=== PATIENT | male | born 1980 | race Caucasian/White ===

== ENCOUNTER → 2016-11-05 | Outpatient (CLI) | payer OTHER ==
[~2016-11-05] MED LIST: ANBEEL TOP; BENZ1TA PO; GEOD20CA14 PO; MOBI15TA PO; NAPR500T PO; NEUR300C PO; NICO21PAT TD; TRAZO50TA PO; TYLE325T5 PO
--- NOTE | 2016-11-05 21:31 | REP ---
Clinical: Decreased size to the right testicle by physical examination. Technique: Real time gonsalez scale and color Doppler evaluation using curved array and linear high frequency transducers. Findings: The bilateral testicles demonstrate microlithiasis (right greater than left). Symmetric vascularity is appreciated to the bilateral testicles without evidence for torsion or acute infectious/inflammatory process. Right testicle measures 4.4 x 1.7 x 2.8 cm with a heterogeneous 6 mm hypoechoic area along the superior lateral margin concerning for small mass. Incidental note is made of a 4.3 mm right epididymal head cyst. No significant right varicocele or hydrocele. Left testicle measures 5.2 x 3.0 x 3.8 cm without evidence for mass lesion. Incidental note is made of a 4.3 mm epididymal head cyst. No significant left varicocele or hydrocele. Impression: Bilateral microlithiasis with mildly decreased size to the right testicle demonstrating 6 mm heterogeneous hypoechoic area concerning for small mass. Signed by Maldonado Gandhi MD 11/05/2016 09:23 P
== END ==
LOC: M RAD 15:15
PROVIDERS: ATTEND Nurse Practitioner Family
DX: N50.9 Disorder of male genital organs, unspecified (principal)

== ENCOUNTER → 2016-11-23 | Outpatient (CLI) | payer OTHER ==
[2016-11-23 13:19] LABS: MEAN CORPUSCULAR HEMOGLOBIN 27.8 pg (27.0-33.0); MEAN CORPUSCULAR HGB CONC 31.7 g/dl (32.0-36.5); RED CELL DISTRIBUTION WIDTH 13.1 % (11.5-14.5); WHITE BLOOD COUNT 10.2 K/mm3 (4.0-10.0)
[2016-11-23 13:23] LABS: ANION GAP 7 MEQ/L (8-16); BLOOD UREA NITROGEN 12 MG/DL (7-18); CALCIUM LEVEL 9.7 MG/DL (8.5-10.1); CARBON DIOXIDE LEVEL 31 MEQ/L (21-32); CHLORIDE LEVEL 104 MEQ/L (98-107); CREATININE FOR GFR 0.89 MG/DL (0.70-1.30); GLOMERULAR FILTRATION RATE > 60.0 (>60); GLUCOSE, FASTING 60 MG/DL (70-105); POTASSIUM SERUM 4.9 MEQ/L (3.5-5.1); SODIUM LEVEL 142 MEQ/L (136-145)
== END ==
LOC: M SMT 08:59
PROVIDERS: ATTEND Nurse Practitioner Women's Health
DX: N50.9 Disorder of male genital organs, unspecified (principal)

== ENCOUNTER → 2016-12-03 | Outpatient (CLI) | payer OTHER ==
[~2016-12-03] MED LIST changes: +GASTROGRAFIN SOLUTION 30ML (Q9963) As Ordered ONE; +ISOVUE-370 76% 100ML VIAL (Q9967) As Ordered ONE
--- NOTE | 2016-12-03 18:22 | REP ---
Clinical: Testicular mass. Technique: Axial contrast enhanced images from the thoracic inlet to the upper abdomen using 100 ml Isovue 370 intravenous contrast material with coronal and sagittal re-formations. Findings: Bilateral lung weldon are well-aerated, symmetric, and clear without consolidation, nodule or mass lesion. Minimal right basilar scarring. No pleural effusion/reaction or pneumothorax. Tracheobronchial tree is patent. No axillary, hilar, or mediastinal adenopathy. Heart/pericardium and thoracic aorta are normal. Impression: No acute mediastinal or pleuroparenchymal process. Signed by Maldonado Gandhi MD 12/03/2016 06:13 P
--- NOTE | 2016-12-03 18:31 | REP ---
Clinical: Testicular mass. Technique: Axial contrast enhanced images from the lung bases to the pubic symphysis using oral and 100 ml Isovue 370 intravenous contrast material with coronal and sagittal re-formations. Findings: Lung bases demonstrate minimal right basilar scarring. Liver, spleen, pancreas, gallbladder, bilateral adrenal glands and kidneys are normal. The enteric system is without obstruction or acute inflammatory process. Sigmoid diverticula suggested without acute diverticulitis. Normal terminal ileum and appendix identified in the right lower quadrant. Pelvis demonstrates normal bladder and age appropriate prostate/seminal vesicles. No pelvic fluid or ascites. No free air. No intraperitoneal or retroperitoneal adenopathy. Vasculature appears normal. Surrounding musculoskeletal structures are intact. Sclerotic focus in the left femoral metaphysis likely represent a bone island. Impression: No acute intra-abdominal or pelvic pathology appreciated. Signed by Maldonado Gandhi MD 12/03/2016 06:22 P
== END ==
LOC: M RAD 15:57
PROVIDERS: ATTEND Nurse Practitioner Women's Health
DX: N50.9 Disorder of male genital organs, unspecified (principal)

== ENCOUNTER 2017-01-01 18:44 | Emergency (ER) | payer OTHER ==
[~2017-01-01] VITALS: Ht 170.2 cm; Wt 60.8 kg
[~2017-01-01 18:44] MED LIST changes: -GASTROGRAFIN SOLUTION 30ML (Q9963) As Ordered ONE; -ISOVUE-370 76% 100ML VIAL (Q9967) As Ordered ONE
[2017-01-01] MEDS ORDERED: KETOROLAC 30 MG/ML VIAL (J1885) IM ONE (19:45)
[2017-01-01 20:16] VITALS: BP 129/71
--- NOTE | 2017-01-02 00:24 | REP ---
Clinical: Pain and instability. Technique: AP, lateral, coned-down views. Findings: Three views of the lumbosacral spine demonstrate satisfactory alignment and lordosis without acute fracture / compression injury or subluxation. Minimal age-related changes are appreciated including anterior spurring most notably at the superior endplate of L4. Impression: Mild age-related changes . No acute fracture / compression injury or subluxation. Signed by Maldonado Gandhi MD 01/02/2017 12:16 A
== END 2017-01-01 20:40 | disposition home or self-care (01) ==
LOC: EDBD 18:44 → M ED 19:45
DX: M54.5 Low back pain (principal); V43.52XA Car driver injured in collision with other type car in traffic accident, initial encounter; Y92.410 Unspecified street and highway as the place of occurrence of the external cause; Y93.9 Activity, unspecified; Y99.9 Unspecified external cause status; G89.29 Other chronic pain; F32.9 Major depressive disorder, single episode, unspecified; G43.909 Migraine, unspecified, not intractable, without status migrainosus; Z79.899 Other long term (current) drug therapy
CPT/HCPCS: 72100; 96372; 99282; J1885

== ENCOUNTER → 2017-06-21 | Outpatient (CLI) | payer OTHER ==
[~2017-06-21] MED LIST changes: +BACT800T5 PO; +BENZ-52 PO; -BENZ1TA PO; +TYLE650T35 PO
--- NOTE | 2017-06-25 10:02 | REP ---
Clinical: Follow up scrotal mass. Technique: Real time gonsalez scale and color Doppler evaluation using linear high frequency transducer. Comparison: 11/05/2016. Findings: In comparison with prior examination, the right testicle now demonstrates multiple hypodense lesions measuring up to 13 x 8 x 13 mm and 12 x 5 x 9 mm along with diffuse microlithiasis. Incidental right epididymal head cyst measures 4.6 mm. The left testicle appears relatively normal and without mass lesion and only few scattered calcifications. Small bilateral hydroceles noted. Incidental left epididymal head cysts measure up to 2 mm. Vascularity to the bilateral testicles is appreciated without evidence for torsion. Right testicle measures 3.4 x 2.1 x 3.2 cm. Left testicle measures 4.8 x 2.3 x 3.3 cm. Impression: 1. While the prior examination demonstrated a single 6 mm hypoechoic lesion, current examination now demonstrates multiple heterogeneous hypoechoic lesions in the right testicle measuring up to 13 x 8 x 13 mm along with diffuse microlithiasis. 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 2. Further less significant findings as described above. Signed by Maldonado Gandhi MD 06/25/2017 10:00 A
== END ==
LOC: M RAD 17:52
PROVIDERS: ATTEND Urology
DX: N50.9 Disorder of male genital organs, unspecified (principal)

== ENCOUNTER → 2017-06-26 | Outpatient (CLI) | payer OTHER ==
--- NOTE | 2017-06-26 11:35 | REP ---
Clinical: Preoperative assessment. Testicular cancer . Comparison: 10/11/2015 . Technique: PA and lateral. Findings: The mediastinum and cardiac silhouette are normal. Airway is patent and midline. The lung wedlon are clear and without acute consolidation, effusion, or pneumothorax. The skeletal structures are intact and normal. Impression: 1. No acute cardiopulmonary process. Signed by Maldonado Gandhi MD 06/26/2017 11:26 A
[2017-06-26 13:35] LABS: ANION GAP 10 MEQ/L (8-16); BLOOD UREA NITROGEN 8 MG/DL (7-18); CALCIUM LEVEL 9.4 MG/DL (8.5-10.1); CARBON DIOXIDE LEVEL 30 MEQ/L (21-32); CHLORIDE LEVEL 103 MEQ/L (98-107); CREATININE FOR GFR 0.88 MG/DL (0.70-1.30); GLOMERULAR FILTRATION RATE > 60.0 (>60); GLUCOSE, FASTING 99 MG/DL (70-105); POTASSIUM SERUM 4.7 MEQ/L (3.5-5.1); SODIUM LEVEL 143 MEQ/L (136-145)
[2017-06-26 13:45] LABS: INR 0.96; MEAN CORPUSCULAR HEMOGLOBIN 29.6 pg (27.0-33.0); MEAN CORPUSCULAR VOLUME 86.8 fl (80.0-96.0); RED CELL DISTRIBUTION WIDTH 13.1 % (11.5-14.5); WHITE BLOOD COUNT 10.9 K/mm3 (4.0-10.0)
== END ==
LOC: M SMT 10:51
PROVIDERS: ATTEND Urology
DX: N50.9 Disorder of male genital organs, unspecified (principal); C62.11 Malignant neoplasm of descended right testis

== ENCOUNTER 2017-07-10 07:04 | Day surgery (SDC) | payer OTHER ==
[~2017-07-10] VITALS: Ht 170.2 cm; Wt 63.0 kg
[~2017-07-10 07:04] MED LIST changes: -BACT800T5 PO; +LIDOCAINE 2% INJ 100 MG/5 ML SDV (FOR ANES.) As Ordered ONE; +MIDAZOLAM INJ 2 MG/2 ML VIAL (J2250) As Ordered ONE; +ONDANSETRON 4MG/2ML VIAL (J2405) As Ordered ONE; +PROPOFOL 200 MG/20 ML VIAL As Ordered ONE; -TYLE650T35 PO; +fentaNYL 100 MCG/2 ML INJECTION (J3010) As Ordered ONE
[2017-07-10] MEDS ORDERED: LR 1,000 ML IV ONE (07:15)
[2017-07-10] MEDS ORDERED: ALBUTEROL SULFATE 2.5 MG/0.5 ML INH NEB SOLN As Ordered ONE (08:08)
[2017-07-10] MEDS ORDERED: ALBUTEROL SULFATE 2.5 MG/0.5 ML INH NEB SOLN INH ONE (08:15)
[2017-07-10] MEDS ORDERED: BUPIVACAINE HCL 0.25% 30 ML VIAL As Ordered ONE (08:15)
[2017-07-10] MEDS ORDERED: LIDOCAINE 2% MDV 20 ML VIAL As Ordered ONE (08:15)
[2017-07-10] MEDS ORDERED: BACTRIM 160MG/800MG DS TAB PO SCH (09:00)
[2017-07-10] MEDS ORDERED: KETOROLAC 60 MG/2 ML VIAL (J1885) As Ordered ONE (09:23)
[2017-07-10] MEDS ORDERED: NEOSTIGMINE 1MG/ML 5 ML SYRINGE (J2710) As Ordered ONE (09:25)
[2017-07-10] MEDS ORDERED: GLYCOPYRROLATE INJ 0.2 MG/ML 2 ML VIAL As Ordered ONE (09:25)
[2017-07-10] MEDS ORDERED: dexameTHASONE 4 MG/ML 1ML VIAL (J1100) As Ordered ONE (09:35)
[2017-07-10] MEDS ORDERED: TYLE650T35 PO (09:55)
[2017-07-10] MEDS ORDERED: BACT800T5 PO (09:55)
[2017-07-10] MEDS ORDERED: LR 1,000 ML IV SCH (10:00)
[2017-07-10] MEDS ORDERED: PERCOCET 5MG/325MG TAB PO PRN (10:00)
[2017-07-10] MEDS ORDERED: ONDANSETRON 4MG/2ML VIAL (J2405) IV PRN (10:00)
[2017-07-10] MEDS ORDERED: fentaNYL 100 MCG/2 ML INJECTION (J3010) As Ordered ONE (10:04)
[2017-07-10] MEDS: fentaNYL 100 MCG/2 ML INJECTION (J3010) IV PRN ×4 (10:07→10:22)
[2017-07-10 11:50] VITALS: BP 126/72
[2017-07-10] MEDS ORDERED: ACETAMINOPHEN 650MG ER TAB (TYLENOL ARTHRITIS) PO SCH (14:00)
--- NOTE | 2017-07-11 07:29 | RO ---
DATE OF PROCEDURE: 07/10/2017 PREOPERATIVE DIAGNOSIS: Right testicular neoplasia. POSTOPERATIVE DIAGNOSIS: Right testicular neoplasia. SURGERY PERFORMED: Right radical orchiectomy. FINDINGS: Right testicular neoplasia. SURGEON: Vahid Monaco MD GRINDER SET UP OPERATOR CENTERLESS: ANESTHESIA: General. COMPLICATIONS: None. ESTIMATED BLOOD LOSS: N/A. HISTORY OF PRESENT ILLNESS: 36-year-old male patient with a solid rock lump in the right testicle confirmed by ultrasound. For this reason he has consented for a right radical orchiectomy. PROCEDURE DESCRIPTION: With the patient in supine position, under general anesthesia, after prepping and draping the area of concern, which included the entire genitalia and abdomen, we started by doing an incision, a transverse incision, for about 5 cm in length in the right inguinal area. We then proceeded to open the fascia of Jony and Camper's fascia with electro Bovie cautery and open the external oblique fascia and the external inguinal ring for about 4 cm in length. We then identified the spermatic cord, dissected the spermatic cord, and put pressure on the testicle to actively extricate the testicle through the incision. With electro Bovie cautery we secured the resected the resected gubernaculum testis attached to the scrotum and secured hemostasis. We then proceeded to actively place three clamps at the base of the spermatic cord and cut in between the first and second clamp. We then proceeded to ligate the spermatic cord with #[address]-1 needle with #[address]-1 needle times two and then a #0 silk tie. We secured hemostasis. There was no bleeding from the spermatic cord. We took the hemostats out and closed the external oblique fascia in a running fashion with #3-0 Vicryl. I then proceeded to close the Jony's and Lopez's fascia with #3-0 chromic in separate stitches. We closed the skin with #4-0 Monocryl subcuticular stitches. We then applied local anesthesia to the wound with Marcaine 0.25% and lidocaine 1%, a total of 10 mL. We then proceeded to actively place Mastisol, Steri-Strips, Telfa and Tegaderm on top of the wound. There were no complications. The patient will go home today. No heavy weight lifting above 20 pounds for one month. No driving under narcotics. He will have pain medication and antibiotics.
== END 2017-07-10 12:15 | disposition home or self-care (01) ==
LOC: M SDC 07:04
PROVIDERS: ATTEND Urology
DX: C62.11 Malignant neoplasm of descended right testis (principal); F32.9 Major depressive disorder, single episode, unspecified; K21.9 Gastro-esophageal reflux disease without esophagitis; F17.210 Nicotine dependence, cigarettes, uncomplicated; Z79.899 Other long term (current) drug therapy

== ENCOUNTER → 2017-10-16 | Outpatient (CLI) | payer OTHER ==
[~2017-10-16] MED LIST changes: -ANBEEL TOP; -BENZ-52 PO; -GEOD20CA14 PO; +ISOVUE-370 76% 100ML VIAL (Q9967) As Ordered; -LIDOCAINE 2% INJ 100 MG/5 ML SDV (FOR ANES.) As Ordered ONE; -MIDAZOLAM INJ 2 MG/2 ML VIAL (J2250) As Ordered ONE; -MOBI15TA PO; -NAPR500T PO; -NEUR300C PO; -NICO21PAT TD; -ONDANSETRON 4MG/2ML VIAL (J2405) As Ordered ONE; -PROPOFOL 200 MG/20 ML VIAL As Ordered ONE; -TRAZO50TA PO; -TYLE325T5 PO; -fentaNYL 100 MCG/2 ML INJECTION (J3010) As Ordered ONE
== END ==
LOC: M RAD 16:59
DX: C62.90 Malignant neoplasm of unspecified testis, unspecified whether descended or undescended (principal)
CPT/HCPCS: Q9967

== ENCOUNTER → 2017-10-24 | Outpatient (CLI) | payer OTHER ==
[2017-10-24 12:13] LABS: HEMATOCRIT 45.5 % (42.0-52.0); HEMOGLOBIN 14.8 g/dl (14.0-18.0); MEAN CORPUSCULAR HEMOGLOBIN 27.8 pg (27.0-33.0); MEAN CORPUSCULAR HGB CONC 32.5 g/dl (32.0-36.5); MEAN CORPUSCULAR VOLUME 85.5 fl (80.0-96.0); PLATELET COUNT, AUTOMATED 409 10^3/uL (150-450); RED BLOOD COUNT 5.32 10^6/uL (4.30-6.10); RED CELL DISTRIBUTION WIDTH 13.1 % (11.5-14.5); WHITE BLOOD COUNT 11.7 10^3/uL (4.0-10.0)
[2017-10-24 12:41] LABS: ANION GAP 6 MEQ/L (8-16); BLOOD UREA NITROGEN 9 MG/DL (7-18); CALCIUM LEVEL 9.8 MG/DL (8.5-10.1); CARBON DIOXIDE LEVEL 31 MEQ/L (21-32); CHLORIDE LEVEL 102 MEQ/L (98-107); CREATININE FOR GFR 1.03 MG/DL (0.70-1.30); GLOMERULAR FILTRATION RATE > 60.0 (>60); GLUCOSE, FASTING 106 MG/DL (70-105); LDH LACTATE DEHYDROGENASE 178 U/L (87-241); POTASSIUM SERUM 4.9 MEQ/L (3.5-5.1); SODIUM LEVEL 139 MEQ/L (136-145)
[2017-10-25 08:06] LABS: HCG SERUM TUMOR MARKER QUANT < 1 mIU/mL (0-3)
[2017-10-25 09:19] LABS: ALPHA FETOPROTEIN TUMOR QUANT 1.7 NG/ML (<8.1)
== END ==
LOC: M SMT 08:58
DX: C62.90 Malignant neoplasm of unspecified testis, unspecified whether descended or undescended (principal)
CPT/HCPCS: 83615

== ENCOUNTER → 2018-03-13 | Outpatient (CLI) | payer OTHER ==
[2018-03-13 13:56] LABS: ANION GAP 8 MEQ/L (8-16); BLOOD UREA NITROGEN 7 MG/DL (7-18); CALCIUM LEVEL 9.3 MG/DL (8.5-10.1); CARBON DIOXIDE LEVEL 28 MEQ/L (21-32); CHLORIDE LEVEL 106 MEQ/L (98-107); CREATININE FOR GFR 0.91 MG/DL (0.70-1.30); GLOMERULAR FILTRATION RATE > 60.0 (>60); GLUCOSE, FASTING 81 MG/DL (70-100); LDH LACTATE DEHYDROGENASE 165 U/L (87-241); POTASSIUM SERUM 4.1 MEQ/L (3.5-5.1); SODIUM LEVEL 142 MEQ/L (136-145)
[2018-03-13 13:59] LABS: LDH LACTATE DEHYDROGENASE 174 U/L (87-241)
[2018-03-14 08:06] LABS: HCG SERUM TUMOR MARKER QUANT < 1 mIU/mL (0-3)
[2018-03-14 10:10] LABS: ALPHA FETOPROTEIN TUMOR QUANT < 1.3 NG/ML (<8.1)
== END ==
LOC: M SMT 10:14
DX: C62.90 Malignant neoplasm of unspecified testis, unspecified whether descended or undescended (principal)
CPT/HCPCS: 83615

== ENCOUNTER → 2018-05-27 | Outpatient (CLI) | payer OTHER ==
[2018-05-27 15:36] LABS: HEMATOCRIT 45.7 % (42.0-52.0); HEMOGLOBIN 15.3 g/dl (13.5-17.5); MEAN CORPUSCULAR HEMOGLOBIN 28.8 pg (27.0-33.0); MEAN CORPUSCULAR HGB CONC 33.5 g/dl (32.0-36.5); MEAN CORPUSCULAR VOLUME 85.9 fl (80.0-96.0); PLATELET COUNT, AUTOMATED 323 10^3/uL (150-450); RED BLOOD COUNT 5.32 10^6/uL (4.30-6.10); RED CELL DISTRIBUTION WIDTH 13.7 % (11.5-14.5); WHITE BLOOD COUNT 12.1 10^3/uL (4.0-10.0)
[2018-05-27 15:52] LABS: ANION GAP 5 MEQ/L (8-16); BLOOD UREA NITROGEN 10 MG/DL (7-18); CALCIUM LEVEL 9.3 MG/DL (8.5-10.1); CARBON DIOXIDE LEVEL 30 MEQ/L (21-32); CHLORIDE LEVEL 106 MEQ/L (98-107); CREATININE FOR GFR 1.01 MG/DL (0.70-1.30); GLOMERULAR FILTRATION RATE > 60.0 (>60); GLUCOSE, FASTING 91 MG/DL (70-100); LDH LACTATE DEHYDROGENASE 183 U/L (87-241); POTASSIUM SERUM 4.8 MEQ/L (3.5-5.1); SODIUM LEVEL 141 MEQ/L (136-145)
[2018-05-27 16:13] LABS: ALPHA FETOPROTEIN TUMOR QUANT < 1.3 NG/ML (<8.1)
[2018-05-29 08:06] LABS: HCG SERUM TUMOR MARKER QUANT < 1 mIU/mL (0-3)
== END ==
LOC: M LAB 15:22
DX: C62.90 Malignant neoplasm of unspecified testis, unspecified whether descended or undescended (principal); K76.89 Other specified diseases of liver; N28.1 Cyst of kidney, acquired; Z90.79 Acquired absence of other genital organ(s)
CPT/HCPCS: Q9967

== ENCOUNTER 2018-09-18 10:37 | Outpatient (RCR) | payer OTHER | END 2018-09-19 | LOC: M PT 10:37 | DX: M51.36 Other intervertebral disc degeneration, lumbar region (principal) ==

== ENCOUNTER → 2018-12-08 | Outpatient (CLI) | payer OTHER ==
[~2018-12-08] MED LIST changes: +ANBEEL TOP; +BACT800T5 PO; +BENZ-52 PO; +GEOD20CA14 PO; -ISOVUE-370 76% 100ML VIAL (Q9967) As Ordered; +MOBI15TA PO; +NAPR-50 PO; +NEUR300C PO; +NICO21PAT TD; +TRAZO50TA PO; +TYLE325T5 PO; +TYLE650T35 PO
[2018-12-08 17:42] LABS: HEMATOCRIT 48.6 % (42.0-52.0); HEMOGLOBIN 16.1 g/dl (13.5-17.5); MEAN CORPUSCULAR HEMOGLOBIN 28.3 pg (27.0-33.0); MEAN CORPUSCULAR HGB CONC 33.1 g/dl (32.0-36.5); MEAN CORPUSCULAR VOLUME 85.4 fl (80.0-96.0); PLATELET COUNT, AUTOMATED 353 10^3/uL (150-450); RED BLOOD COUNT 5.69 10^6/uL (4.30-6.10); WHITE BLOOD COUNT 10.6 10^3/uL (4.0-10.0)
[2018-12-08 18:04] LABS: BLOOD UREA NITROGEN 13 MG/DL (7-18); CALCIUM LEVEL 9.6 MG/DL (8.5-10.1); CARBON DIOXIDE LEVEL 31 MEQ/L (21-32); CHLORIDE LEVEL 102 MEQ/L (98-107); CREATININE FOR GFR 1.02 MG/DL (0.70-1.30); GLOMERULAR FILTRATION RATE > 60.0 (>60); GLUCOSE, FASTING 79 MG/DL (70-100); LDH LACTATE DEHYDROGENASE 208 U/L (87-241); SODIUM LEVEL 139 MEQ/L (136-145)
== END ==
LOC: M SMT 15:05
PROVIDERS: ATTEND Nurse Practitioner Women's Health
DX: Z85.47 Personal history of malignant neoplasm of testis (principal)

== ENCOUNTER → 2018-12-09 | Outpatient (CLI) | payer OTHER ==
[~2018-12-09] MED LIST changes: +GASTROGRAFIN SOLUTION 30ML (Q9963) As Ordered ONE; +ISOVUE-370 76% 100ML VIAL (Q9967) As Ordered ONE
--- NOTE | 2018-12-10 04:55 | REP ---
Clinical: History of testicular cancer. Technique: Axial contrast enhanced images from the lung bases to the pubic symphysis using oral (per protocol) and 100 ml Isovue 370 intravenous contrast material with precontrast and delayed images of the abdomen as well as coronal and sagittal re-formations. Automated dose reduction techniques and adjustment according to patient's size utilized during acquisition. Comparison: 05/27/2018, 10/16/2017, 12/03/2016. Findings: Lung bases are clear. Visualized heart and pericardium normal. Liver demonstrates mild fatty infiltration with few scattered stable subcentimeter hypodensities consistent with cysts. Spleen, pancreas, gallbladder, bilateral adrenal glands and kidneys are normal. The enteric system including stomach, small, and large bowel is without obstruction or acute inflammatory process. Normal terminal ileum and appendix identified in the right lower quadrant. Scattered sigmoid diverticula noted without acute diverticulitis. Pelvis demonstrates normal bladder and age appropriate prostate/seminal vesicles. No pelvic fluid or ascites. No intraperitoneal or retroperitoneal adenopathy. Abdominal aorta and vasculature appear normal. Musculoskeletal structures are intact and without focal osseous abnormality. Impression: No acute abdominopelvic pathology appreciated. Specifically, no evidence for metastatic disease. Electronically Signed by Maldonado Gandhi MD 12/10/2018 04:47 A
== END ==
LOC: M RAD 14:28
PROVIDERS: ATTEND Nurse Practitioner Family
DX: Z85.47 Personal history of malignant neoplasm of testis (principal); K76.0 Fatty (change of) liver, not elsewhere classified; K57.30 Diverticulosis of large intestine without perforation or abscess without bleeding
CPT/HCPCS: 74178; Q9963; Q9967

== ENCOUNTER → 2018-12-18 | Outpatient (CLI) | payer OTHER ==
[~2018-12-18] MED LIST changes: -GASTROGRAFIN SOLUTION 30ML (Q9963) As Ordered ONE; -ISOVUE-370 76% 100ML VIAL (Q9967) As Ordered ONE
--- NOTE | 2018-12-18 10:11 | REP ---
Clinical: History of testicular cancer . Comparison: 05/27/2018 . Technique: PA and lateral. Findings: The mediastinum and cardiac silhouette are normal. The lung weldon are clear and without acute consolidation, effusion, or pneumothorax. The skeletal structures are intact and normal. Impression: 1. No acute cardiopulmonary process. Electronically Signed by Maldonado Gandhi MD 12/18/2018 10:02 A
== END ==
LOC: M SMT 09:51
PROVIDERS: ATTEND Nurse Practitioner Women's Health
DX: Z85.47 Personal history of malignant neoplasm of testis (principal)

== ENCOUNTER → 2018-12-25 | Outpatient (REF) | payer OTHER ==
[2018-12-25 20:19] LABS: INFLUENZA A AMPLIFICATION NEGATIVE (NEGATIVE); INFLUENZA B AMPLIFICATION NEGATIVE (NEGATIVE)
== END ==
LOC: M LAB REF 19:16
PROVIDERS: ATTEND Physician Assistant
DX: J11.1 Influenza due to unidentified influenza virus with other respiratory manifestations (principal)

== ENCOUNTER → 2019-06-16 | Outpatient (CLI) | payer OTHER ==
[~2019-06-16] MED LIST changes: -NAPR-50 PO; +NAPR-837 PO; +TRAZ1TAB10 PO; -TRAZO50TA PO
[2019-06-16 14:40] LABS: HEMATOCRIT 46.4 % (42.0-52.0); MEAN CORPUSCULAR HEMOGLOBIN 27.7 pg (27.0-33.0); MEAN CORPUSCULAR HGB CONC 32.3 g/dl (32.0-36.5); MEAN CORPUSCULAR VOLUME 85.6 fl (80.0-96.0); PLATELET COUNT, AUTOMATED 310 10^3/uL (150-450); RED BLOOD COUNT 5.42 10^6/uL (4.30-6.10); WHITE BLOOD COUNT 11.3 10^3/uL (4.0-10.0)
[2019-06-16 15:09] LABS: BLOOD UREA NITROGEN 9 MG/DL (7-18); CALCIUM LEVEL 9.2 MG/DL (8.5-10.1); CARBON DIOXIDE LEVEL 30 MEQ/L (21-32); CHLORIDE LEVEL 104 MEQ/L (98-107); CREATININE FOR GFR 1.03 MG/DL (0.70-1.30); GLOMERULAR FILTRATION RATE > 60.0 (>60); GLUCOSE, FASTING 100 MG/DL (70-100); LDH LACTATE DEHYDROGENASE 166 U/L (87-241); POTASSIUM SERUM 4.1 MEQ/L (3.5-5.1); SODIUM LEVEL 139 MEQ/L (136-145)
--- NOTE | 2019-06-17 11:56 | REP ---
Clinical: Testicular cancer . Comparison: 12/18/2018 . Technique: PA and lateral. Findings: The mediastinum and cardiac silhouette are normal. The lung weldon are clear and without acute consolidation, effusion, or pneumothorax. The skeletal structures are intact and normal. Impression: 1. No acute cardiopulmonary process. Electronically Signed by Maldonado Gandhi MD 06/17/2019 02:15 A
== END ==
LOC: M LAB 13:34
PROVIDERS: ATTEND Nurse Practitioner Women's Health
DX: Z85.47 Personal history of malignant neoplasm of testis (principal)

== ENCOUNTER → 2019-12-09 | Outpatient (CLI) | payer OTHER ==
[2019-12-09 18:54] LABS: LDH LACTATE DEHYDROGENASE 145 U/L (87-241)
== END ==
LOC: M PLALAB 13:25
PROVIDERS: ATTEND Urology
DX: C62.90 Malignant neoplasm of unspecified testis, unspecified whether descended or undescended (principal)

== ENCOUNTER → 2019-12-10 | Outpatient (CLI) | payer OTHER ==
[~2019-12-10] MED LIST changes: +ISOVUE-370 76% 100ML VIAL (Q9967) As Ordered ONE
--- NOTE | 2019-12-10 09:26 | REP ---
CT ABDOMEN PELVIS WITH IV BUT WITHOUT ORAL CONTRAST: HISTORY: Testicular cancer. COMPARISON STUDY: December 09, 2018. CT CONTRAST DOSE: 100 mL of intravenous Isovue [address] FINDINGS: Preliminary digital agricultural aircraft pilot radiograph is unremarkable. The lung bases are clear. There is no evidence of pleural effusion or abdominal ascites. The liver and the spleen are normal in size homogeneous in texture. No focal liver lesion is seen. No adrenal lesion is observed. Kidneys enhance symmetrically. There are one or two tiny cortical cysts in each kidney. No pancreatic abnormality is seen. No abnormality is noted the gallbladder. There is no evidence of retroperitoneal mass or adenopathy. Normal appendix is seen. Small and large intestinal bowel loops are unremarkable. No pelvic adenopathy is seen. Seminal vesicles and prostate are unremarkable. Urinary bladder appears intact. No bony destructive lesion. There is a benign stable bone island in the intertrochanteric femur on the left unchanged. IMPRESSION: No acute disease. Electronically Signed by Adiel Roldan MD 12/10/2019 10:29 A
== END ==
LOC: M RAD 07:58
PROVIDERS: ATTEND Urology
DX: C62.90 Malignant neoplasm of unspecified testis, unspecified whether descended or undescended (principal)
CPT/HCPCS: 74177; Q9967

== ENCOUNTER → 2019-12-30 | Outpatient (REF) | payer OTHER ==
[~2019-12-30] MED LIST changes: -ISOVUE-370 76% 100ML VIAL (Q9967) As Ordered ONE
[2019-12-30 12:02] LABS: INFLUENZA A AMPLIFICATION NEGATIVE (NEGATIVE); INFLUENZA B AMPLIFICATION NEGATIVE (NEGATIVE)
== END ==
LOC: M LAB REF 11:03
PROVIDERS: ATTEND Physician Assistant
DX: J11.1 Influenza due to unidentified influenza virus with other respiratory manifestations (principal)

== ENCOUNTER 2020-11-30 22:00 | Emergency (ER) | payer OTHER ==
[~2020-11-30] VITALS: Ht 167.6 cm; Wt 62.3 kg
[~2020-11-30 22:00] MED LIST changes: +ACET650T61 PO; -TYLE650T35 PO
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
[2020-11-30] MEDS ORDERED: GI COCKTAIL 50ML BTL(HYOSCYAMINE/MAALOX/LIDOCAINE VISCOUS)(1:3:1) PO ONE (22:45)
[2020-11-30 22:48] LABS: BASO # 0.1 10^3/uL (0.0-0.2); BASO % 0.8 % (0.0-1.0); EOS # 0.3 10^3/uL (0.0-0.5); EOS % 2.7 % (0.0-3.0); HEMATOCRIT 45.2 % (42.0-52.0); HEMOGLOBIN 14.4 g/dl (13.5-17.5); LYMPH # 2.6 10^3/uL (1.5-5.0); LYMPH % 26.8 % (24.0-44.0); MEAN CORPUSCULAR HEMOGLOBIN 27.3 pg (27.0-33.0); MEAN CORPUSCULAR HGB CONC 31.9 g/dl (32.0-36.5); MEAN CORPUSCULAR VOLUME 85.8 fl (80.0-96.0); MONO # 0.8 10^3/uL (0.0-0.8); MONO % 8.2 % (0.0-5.0); NEUTROPHILS % 61.1 % (36.0-66.0); PLATELET COUNT, AUTOMATED 303 10^3/uL (150-450); RED BLOOD COUNT 5.27 10^6/uL (4.30-6.10); WHITE BLOOD COUNT 9.8 10^3/uL (4.0-10.0)
[2020-11-30 23:22] LABS: ALBUMIN 3.9 GM/DL (3.2-5.2); ALT/SGPT 21 U/L (12-78); BILIRUBIN,DIRECT < 0.1 MG/DL (0.0-0.2); BILIRUBIN,TOTAL 0.2 MG/DL (0.2-1.0); CK-MB VALUE MASS < 1.0 NG/ML (<3.6); CPK CREATINE PHOSPHOKINASE 90 U/L (39-308); LIPASE 168 U/L (73-393); MB/CK RELATIVE INDEX 1.11 (< OR =4); TOTAL PROTEIN 6.7 GM/DL (6.4-8.2); TROPONIN I < 0.02 NG/ML (< 0.10)
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
[2020-12-01] MEDS ORDERED: KETOROLAC 30 MG/ML 1ML VIAL IV ONE
[2020-12-01] MEDS: GASTROGRAFIN SOLUTION 30ML PO SCH ×2 (00:29→00:59)
[2020-12-01] MEDS ORDERED: ISOVUE-370 76% 100ML VIAL As Ordered ONE (01:27)
--- NOTE | 2020-12-01 02:53 | REPVR ---
PROCEDURE INFORMATION: Exam: CT Angiography Chest With Contrast Exam date and time: 11/30/2020 11:49 PM Age: 40 years old Clinical indication: Chest pain; Type not specified; Additional info: Chest pain, epigastric pain TECHNIQUE: Imaging protocol: Computed tomographic angiography of the chest with contrast. 3D rendering (Not supervised by radiologist): MIP and/or 3D reconstructed images were created by the technologist. Radiation optimization: All CT scans at this facility use at least one of these dose optimization techniques: automated exposure control; mA and/or kV adjustment per patient size (includes targeted exams where dose is matched to clinical indication); or iterative reconstruction. Contrast material: ISO; Contrast volume: 100 ml; Contrast route: INTRAVENOUS (IV); COMPARISON: No relevant prior studies available. FINDINGS: Pulmonary arteries: Normal. No pulmonary emboli. Aorta: Unremarkable. No aortic aneurysm. No aortic dissection. Lungs: Centrilobular and paraseptal emphysema. Bilateral dependent atelectasis. Pleural spaces: Unremarkable. No pneumothorax. No pleural effusion. Heart: Unremarkable. No cardiomegaly. No pericardial effusion. Mediastinal space: Hyperattenuating material in the distal esophagus may represent refluxing oral contrast. Lymph nodes: Unremarkable. No enlarged lymph nodes. Bones/joints: Unremarkable. No acute fracture. Soft tissues: Unremarkable. IMPRESSION: Hyperattenuating material in the distal esophagus may represent refluxing oral contrast. Electronically signed by: Jacky Pickard On 12/01/2020 02:53:19 AM
--- NOTE | 2020-12-01 02:58 | REPVR ---
PROCEDURE INFORMATION: Exam: CT Abdomen And Pelvis With Contrast Exam date and time: 11/30/2020 11:49 PM Age: 40 years old Clinical indication: Abdominal pain; Epigastric; Additional info: Chest pain, epigastric pain TECHNIQUE: Imaging protocol: Computed tomography of the abdomen and pelvis with contrast. Radiation optimization: All CT scans at this facility use at least one of these dose optimization techniques: automated exposure control; mA and/or kV adjustment per patient size (includes targeted exams where dose is matched to clinical indication); or iterative reconstruction. Contrast material: ISO; Contrast volume: 100 ml; Contrast route: INTRAVENOUS (IV); Other contrast: Oral, ggraphin, 600; COMPARISON: CT ABD PELVIS WITH CONTRAST 12/10/2019 8:36 AM FINDINGS: Liver: Hepatomegaly. Gallbladder and bile ducts: Normal. No calcified stones. No ductal dilation. Pancreas: Normal. No ductal dilation. Spleen: Normal. No splenomegaly. Adrenal glands: Normal. No mass. Kidneys and ureters: Normal. No hydronephrosis. Stomach and bowel: Suggestion of gastroesophageal reflux. Ascending and transverse colon is mildly distended with stool. Mild nonspecific generalized distention of small bowel. Appendix: No evidence of appendicitis. Intraperitoneal space: Unremarkable. No free air. No significant fluid collection. Vasculature: Mild atherosclerotic disease stress. No abdominal aortic aneurysm. Lymph nodes: Unremarkable. No enlarged lymph nodes. Urinary bladder: Unremarkable as visualized. Reproductive: Unremarkable as visualized. Bones/joints: Unremarkable. No acute fracture. Soft tissues: Unremarkable. IMPRESSION: Suggestion of gastroesophageal reflux. Mild hepatomegaly. Ascending and transverse colon is mildly distended with stool. Mild nonspecific generalized distention of small bowel. Electronically signed by: Jacky Pickard On 12/01/2020 02:57:57 AM
[2020-12-01] MEDS ORDERED: OMEPRAZOLE 20 MG CAP PO ONE (03:15)
[2020-12-01] MEDS ORDERED: OMEP40CA97 PO (03:16)
[2020-12-01 03:32] VITALS: BP 133/73
--- NOTE | 2020-12-01 09:37 | ECGEPIP ---
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
--- NOTE | 2020-12-01 22:33 | ED PDOC ---
Post-Departure Follow-Up [facility] and jg boyd faxed formal report of cta chest an d ct abd/p for fu Jp Fregoso MD Dec 01, 2020 22:33
== END 2020-12-01 03:39 | disposition home or self-care (01) ==
LOC: M ED 22:00
DX: K21.9 Gastro-esophageal reflux disease without esophagitis (principal); R94.31 Abnormal electrocardiogram [ECG] [EKG]; Z79.899 Other long term (current) drug therapy; F17.210 Nicotine dependence, cigarettes, uncomplicated; F12.20 Cannabis dependence, uncomplicated
CPT/HCPCS: 71275; 74177; 80047; 80076; 82550; 82553; 83690; 85025; 93005; 93041; 96374; 99285; J1885; Q9963; Q9967

== ENCOUNTER → 2020-12-26 | Outpatient (CLI) | payer OTHER ==
[~2020-12-26] MED LIST changes: +ISOVUE-370 76% 100ML VIAL As Ordered ONE; +OMEP40CA97 PO
--- NOTE | 2020-12-26 10:30 | REP ---
INDICATION: TESTICULAR CA COMPARISON: 12/01/2020, 12/10/2019. TECHNIQUE: CT Scan of the abdomen and pelvis was performed with intravenous administration of 100 cc of Isovue 370, without oral contrast. Sagittal and coronal reconstruction images are performed. FINDINGS: Lung bases: Unremarkable. Liver: Normal Gallbladder: Unremarkable. Spleen: Normal. Adrenals: Normal. Pancreas: Normal. Kidneys: There is a 6 mm cyst in the upper pole the left kidney. Small and large bowel: Unremarkable. Free fluid: None. Abdominal aorta: No aneurysm or dissection. Adenopathy: None. Appendix: Not inflamed. Osseous structures: Unremarkable. There are stable bone islands in the proximal femurs. Pelvis: No mass. IMPRESSION: Essentially negative CT abdomen and pelvis. <Electronically signed by Sergio Shipley > 12/26/20 1021
== END ==
LOC: M RAD 09:43
PROVIDERS: ATTEND Urology
DX: C62.90 Malignant neoplasm of unspecified testis, unspecified whether descended or undescended (principal)
CPT/HCPCS: 74177; Q9967

== ENCOUNTER → 2021-02-01 | Outpatient (CLI) | payer OTHER ==
[~2021-02-01] MED LIST changes: -ISOVUE-370 76% 100ML VIAL As Ordered ONE
== END ==
LOC: M LAB 09:06
PROVIDERS: ATTEND Urology
DX: C62.90 Malignant neoplasm of unspecified testis, unspecified whether descended or undescended (principal)

== ENCOUNTER 2021-03-28 20:15 | Inpatient (IN) | payer MEDICAID, OTHER ==
[~2021-03-28] VITALS: Ht 167.6 cm; Wt 60.0 kg
[~2021-03-28 20:15] MED LIST changes: +OMEP40CA4 PO; -OMEP40CA97 PO
[2021-03-28 22:02] LABS: AMPHETAMINES LEVEL URINE NEGATIVE (NEGATIVE); BARBITURATES URINE NEGATIVE (NEGATIVE); BENZODIAZEPINES URINE NEGATIVE (NEGATIVE); CANNABINOIDS URINE POSITIVE (NEGATIVE); COCAINE METABOLITE URINE NEGATIVE (NEGATIVE); METHADONE URINE NEGATIVE (NEGATIVE); OPIATES URINE NEGATIVE (NEGATIVE); PHENCYCLIDINE URINE NEGATIVE (NEGATIVE)
[2021-03-29 00:16] LABS: HEMATOCRIT 40.4 % (42.0-52.0); HEMOGLOBIN 13.3 g/dl (13.5-17.5); MEAN CORPUSCULAR HEMOGLOBIN 28.7 pg (27.0-33.0); MEAN CORPUSCULAR HGB CONC 32.9 g/dl (32.0-36.5); MEAN CORPUSCULAR VOLUME 87.3 fl (80.0-96.0); PLATELET COUNT, AUTOMATED 294 10^3/uL (150-450); RED BLOOD COUNT 4.63 10^6/uL (4.30-6.10); WHITE BLOOD COUNT 10.3 10^3/uL (4.0-10.0)
[2021-03-29 00:37] LABS: ACETAMINOPHEN LEVEL < 2.0 UG/ML (10.0-30.0); ALBUMIN 3.6 GM/DL (3.2-5.2); ALT/SGPT 37 U/L (12-78); BILIRUBIN,DIRECT < 0.1 MG/DL (0.0-0.2); BILIRUBIN,TOTAL 0.3 MG/DL (0.2-1.0); BLOOD UREA NITROGEN 13 MG/DL (7-18); CARBON DIOXIDE LEVEL 29 MEQ/L (21-32); CHLORIDE LEVEL 107 MEQ/L (98-107); CREATININE FOR GFR 0.79 MG/DL (0.70-1.30); ETHYL ALCOHOL (ETHANOL) < 0.003 % (0.000-0.010); GLOMERULAR FILTRATION RATE > 60.0 (>60); GLUCOSE, FASTING 105 MG/DL (70-100); POTASSIUM SERUM 3.4 MEQ/L (3.5-5.1); SALICYLATE LEVEL 2.3 MG/DL (5.0-30.0); SODIUM LEVEL 142 MEQ/L (136-145); THYROID STIMULATING HORMONE 0.902 uIU/ML (0.358-3.740); TOTAL PROTEIN 6.2 GM/DL (6.4-8.2)
[2021-03-29] MEDS: ACETAMINOPHEN TAB 650MG DOSE (2X325MG) PO ONE ×2 (01:40→01:49)
[2021-03-29] MEDS: OLANZapine ORAL DISINTEGRATING TAB 5MG PO ONE ×2 (01:40→01:49)
[2021-03-29] MEDS ORDERED: diphenhydrAMINE 50MG/ML VIAL (J1200) IM ONE (04:20)
[2021-03-29] MEDS ORDERED: LORazepam 2 MG/ML VIAL IM ONE (04:20)
[2021-03-29] MEDS ORDERED: HALOPERIDOL 5MG/ML VIAL (J1630 PER 1) IM ONE (04:20)
[2021-03-29] MEDS ORDERED: LORazepam 2 MG/ML VIAL As Ordered ONE (04:34)
[2021-03-29 17:47] LABS: RSV AMPLIFICATION NEGATIVE (NEGATIVE)
[2021-03-29] MEDS ORDERED: MOM 30ML SUSPENSION UDC PO PRN (18:55)
[2021-03-29] MEDS ORDERED: PALIPERIDONE 3 MG ER TAB (INVEGA) PO SCH (21:00)
[2021-03-29 21:13] VITALS: BP 130/73
[2021-03-29] MEDS: IBUPROFEN 400MG TAB PO PRN (22:21)
[2021-03-30] MEDS: IBUPROFEN 400MG TAB PO PRN ×3 (04:50→19:20)
[2021-03-30 06:37] VITALS: BP 131/85
[2021-03-30] MEDS: NICOTINE 21MG/24HR 1 EA TRANSDERMAL TD SCH (08:04)
[2021-03-30] MEDS: MAALOX 30 ML SUSP *UDC PO PRN (08:05)
[2021-03-30] MEDS: LORazepam 1 MG TAB PO SCH ×4 (09:00→22:16)
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
[2021-03-30 16:05] VITALS: BP 141/68
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
[2021-03-30] MEDS: PALIPERIDONE 6 MG ER TAB (INVEGA) PO SCH (22:17)
[2021-03-31] MEDS: OLANZapine ORAL DISINTEGRATING TAB 5MG PO PRN ×2 (00:20→18:05)
[2021-03-31] MEDS: traZODone 50 MG TAB PO PRN ×2 (00:20→22:55)
[2021-03-31 06:00] VITALS: BP 128/68
--- NOTE | 2021-03-31 08:02 | MHIPNPDOC ---
[facility] Progress Note Progress Note DATE OF SERVICE: 03/31/21 The patient. fully cooperated with his medication and reports that he is feeling better and has slept very good. He is not as confused, irritable, and appears in much better contact, more pleasant. He still believes that neighbor was a harassing and threatening at reports that his doesn't believe that he could have been wrong. He is denying any command hallucination. Denies any thoughts of harming anybody but he is still very poor historian and not able to give coherent account of the circumstances surrounding his admission. HISTORY: . VITAL SIGNS: See below. NEW TEST RESULTS: . CURRENT MEDICATIONS: See below. MENTAL STATUS EXAMINATION: Patient is a 40-year old male, who is in no acute distress. Speech: Is more rational and relevant. Language skills are fair. Thought processes including: , Not spontaneous and not productive. Thought content: Remains very paranoid about his neighbor. Abstract reasoning, and computation: , Poor. Description of associations: More organized. Description of abnormal or psychotic thoughts: Remains very paranoid, but denies any command hallucination and denies any thoughts of harming anybody. Judgment: poor. Insight: poor. Orientation: , Oriented to the place and person, but does not know the date. Recent and remote memory: . Attention span and concentration: poor. Language: . Fund of knowledge: . Mood: , Not as angry or irritable. Affect: More animated and appropriate. DIAGNOSES: 1. . Psychotic disorder, NOS 2. . 3. . ASSESSMENT:, Tolerating medications and showing slight improvement MANAGEMENT PLAN: Continue the current treatment. TIME SPENT: 20 minutes. Vital Signs Vital Signs Date Time Temp Pulse Resp B/P (MAP) Pulse Ox O2 Delivery O2 Flow Rate FiO2 03/30/21 16:05 98.1 100 18 141/68 (92) 98 Room Air Current Medications Current Medications Medications (Trade) Dose Ordered Sig/Dipti Route PRN Reason Start Time Stop Time Status Last Admin Dose Admin Al Hydrox/Mg Hydrox/Simethicone (Mylanta) 30 ml Q4HP PRN PO HEARTBURN/INDIGESTION 03/29/21 18:55 03/30/21 08:05 Home Med (Med Rec Complete!) ASDIRECTED XX 03/29/21 20:55 03/29/21 20:57 DC Ibuprofen (Advil) 400 mg Q6HP PRN PO PAIN 03/29/21 18:55 03/30/21 19:20 Lorazepam (Ativan) 1 mg TID PO 03/30/21 09:00 03/30/21 22:16 Magnesium Hydroxide (Milk Of Magnesia) 30 ml DAILYPRN PRN PO CONSTIPATION 03/29/21 18:55 Nicotine (Nicoderm Cq 21mg) 1 patch DAILY TD 03/30/21 09:00 Olanzapine (ZyPREXA ZYDIS) 5 mg Q6HP PRN PO AGITATION 03/29/21 18:55 03/31/21 00:20 Paliperidone (Invega) 3 mg QHS PO 03/29/21 21:00 03/30/21 09:13 DC 03/29/21 21:51 Paliperidone (Invega) 6 mg QHS PO 03/30/21 21:00 03/30/21 22:17 Trazodone HCl (Desyrel) 50 mg QHSP PRN PO INSOMNIA 03/31/21 00:15 03/31/21 00:20 Allergies Coded Allergies: No Known Allergies (Unverified , 11/30/20) BACILIO GUILLAUME M.D. Mar 31, 2021 08:02
[2021-03-31] MEDS: NICOTINE 21MG/24HR 1 EA TRANSDERMAL TD SCH (08:03)
[2021-03-31] MEDS: LORazepam 1 MG TAB PO SCH ×3 (08:04→19:46)
[2021-03-31] MEDS: IBUPROFEN 400MG TAB PO PRN ×2 (12:34→19:47)
[2021-03-31] MEDS: MAALOX 30 ML SUSP *UDC PO PRN (14:04)
[2021-03-31 16:04] VITALS: BP 121/80
[2021-03-31] MEDS: PALIPERIDONE 6 MG ER TAB (INVEGA) PO SCH (19:46)
[2021-03-31] MEDS ORDERED: POTASSIUM CHLORIDE 10 MEQ SR TABLET PO ONE (20:00)
[2021-04-01] MEDS ORDERED: diphenhydrAMINE 50MG CAP PO ONE (02:00)
[2021-04-01] MEDS ORDERED: LORazepam 2 MG TAB PO ONE (02:00)
[2021-04-01] MEDS: NICOTINE 21MG/24HR 1 EA TRANSDERMAL TD SCH (08:36)
[2021-04-01] MEDS: LORazepam 1 MG TAB PO SCH ×3 (08:36→19:59)
[2021-04-01 09:35] LABS: BASO # 0.1 10^3/uL (0.0-0.2); BASO % 0.9 % (0.0-1.0); EOS # 0.3 10^3/uL (0.0-0.5); EOS % 4.1 % (0.0-3.0); HEMATOCRIT 44.3 % (42.0-52.0); HEMOGLOBIN 14.2 g/dl (13.5-17.5); LYMPH # 2.6 10^3/uL (1.5-5.0); LYMPH % 32.9 % (24.0-44.0); MEAN CORPUSCULAR HEMOGLOBIN 28.1 pg (27.0-33.0); MEAN CORPUSCULAR HGB CONC 32.1 g/dl (32.0-36.5); MEAN CORPUSCULAR VOLUME 87.7 fl (80.0-96.0); MONO # 0.7 10^3/uL (0.0-0.8); MONO % 9.3 % (2.0-8.0); NEUTROPHILS # 4.1 10^3/uL (1.5-8.5); NEUTROPHILS % 52.7 % (36.0-66.0); PLATELET COUNT, AUTOMATED 309 10^3/uL (150-450); RED BLOOD COUNT 5.05 10^6/uL (4.30-6.10); WHITE BLOOD COUNT 7.8 10^3/uL (4.0-10.0)
[2021-04-01 10:08] LABS: BLOOD UREA NITROGEN 8 MG/DL (7-18); CALCIUM LEVEL 8.9 MG/DL (8.5-10.1); CARBON DIOXIDE LEVEL 35 MEQ/L (21-32); CHLORIDE LEVEL 105 MEQ/L (98-107); CREATININE FOR GFR 0.86 MG/DL (0.70-1.30); GLOMERULAR FILTRATION RATE > 60.0 (>60); GLUCOSE, FASTING 71 MG/DL (70-100); POTASSIUM SERUM 4.4 MEQ/L (3.5-5.1); SODIUM LEVEL 141 MEQ/L (136-145)
--- NOTE | 2021-04-01 13:20 | MHIPN ---
[facility] PROGRESS NOTE DATE: 04/01/2021 The patient today states he is "not good." He tends to be very groggy, mumbling. He kept falling asleep. He still appeared to be paranoid and said something about the neighbor trying to hurt him. MENTAL STATUS EXAMINATION: He is alert. He is oriented times three. Eye contact is poor. Psychomotor activity is decreased. As I said, he was almost falling asleep at some point. His is mumbling. He said he was "not good." Affect is flat. He is having paranoid thoughts. He is denying suicidal or homicidal ideation. Concentration is poor. Memory grossly intact. Insight and judgment poor. DIAGNOSIS: Unspecified psychotic disorder, rule out bipolar disorder. TREATMENT PLAN: At this point, we will continue to monitor the patient for what appears to be psychotic symptoms, and we will titrate his medications as indicated.
[2021-04-01] MEDS: MAALOX 30 ML SUSP *UDC PO PRN ×2 (14:13→20:00)
[2021-04-01] MEDS: IBUPROFEN 400MG TAB PO PRN ×2 (15:48→23:39)
[2021-04-01 16:10] VITALS: BP 121/75
[2021-04-01] MEDS: PALIPERIDONE 6 MG ER TAB (INVEGA) PO SCH (19:59)
[2021-04-01] MEDS: traZODone 50 MG TAB PO PRN (21:41)
[2021-04-02] MEDS: OLANZapine ORAL DISINTEGRATING TAB 5MG PO PRN ×3 (04:41→23:32)
[2021-04-02] MEDS: IBUPROFEN 400MG TAB PO PRN ×2 (05:39→16:12)
[2021-04-02 06:27] VITALS: BP 134/83
[2021-04-02] MEDS: NICOTINE 21MG/24HR 1 EA TRANSDERMAL TD SCH (08:07)
[2021-04-02] MEDS: LORazepam 1 MG TAB PO SCH ×3 (08:09→21:00)
[2021-04-02] MEDS: MAALOX 30 ML SUSP *UDC PO PRN ×2 (08:36→23:32)
[2021-04-02] MEDS: CALCIUM CARBONATE 500 MG CHEW U/D PO PRN (10:59)
[2021-04-02 15:19] VITALS: BP 125/80
[2021-04-02] MEDS: PALIPERIDONE 6 MG ER TAB (INVEGA) PO SCH (21:00)
[2021-04-02] MEDS: traZODone 50 MG TAB PO PRN (23:32)
[2021-04-03] MEDS: IBUPROFEN 400MG TAB PO PRN ×2 (00:30→22:58)
[2021-04-03 06:22] VITALS: BP 134/74
[2021-04-03 06:41] VITALS: BP 125/69
[2021-04-03] MEDS: LORazepam 1 MG TAB PO SCH ×3 (08:14→19:54)
[2021-04-03] MEDS: NICOTINE 21MG/24HR 1 EA TRANSDERMAL TD SCH (08:15)
[2021-04-03] MEDS: MAALOX 30 ML SUSP *UDC PO PRN (08:42)
[2021-04-03] MEDS: risperiDONE 2 MG TAB PO SCH ×2 (09:57→19:53)
[2021-04-03] MEDS: DIVALPROEX 500MG *ER* TAB PO SCH ×2 (09:57→19:54)
--- NOTE | 2021-04-03 10:23 | MHIPN ---
[facility] PSYCHIATRIC PROGRESS NOTE DATE OF SERVICE: 04/02/2021 HISTORY OF PRESENT ILLNESS: The patient today states "I am doing good." He says he slept good. He is no suicidal. He says he is feeling more relaxed because he did yoga classes. He has no complaints and he is definitely much more alert today. MENTAL STATUS EXAM: This patient is alert and oriented times 3, pleasant and cooperative, verbally spontaneous. Eye contact is good. Mood is good. Affect is full range and appropriate. Patient is not psychotic, suicidal or homicidal. Concentration and memory is good. Insight and judgment good. DIAGNOSES: 1. Unspecified psychotic disorder. 2. Rule out bipolar disorder. TREATMENT PLAN: We will further observe and evaluate this patient for further stabilization of mood and resolution of suicidal ideation and resolution of psychotic symptoms and we will titrate medications as indicated.
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
[2021-04-03] MEDS: CALCIUM CARBONATE 500 MG CHEW U/D PO PRN ×2 (10:47→22:57)
[2021-04-03] MEDS: OLANZapine ORAL DISINTEGRATING TAB 5MG PO PRN (11:42)
[2021-04-03 18:00] VITALS: BP 116/77
[2021-04-03] MEDS: traZODone 50 MG TAB PO PRN (21:13)
[2021-04-04] MEDS: IBUPROFEN 400MG TAB PO PRN ×2 (05:18→20:12)
[2021-04-04] MEDS: OLANZapine ORAL DISINTEGRATING TAB 5MG PO PRN (05:18)
[2021-04-04 06:35] VITALS: BP 112/74
[2021-04-04] MEDS: NICOTINE 21MG/24HR 1 EA TRANSDERMAL TD SCH (09:00)
[2021-04-04] MEDS: LORazepam 1 MG TAB PO SCH ×4 (09:43→20:11)
[2021-04-04] MEDS: DIVALPROEX 500MG *ER* TAB PO SCH ×2 (09:43→20:11)
[2021-04-04] MEDS: risperiDONE 2 MG TAB PO SCH ×2 (09:43→20:11)
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
[2021-04-05] MEDS: NICOTINE 21MG/24HR 1 EA TRANSDERMAL TD SCH (09:00)
--- NOTE | 2021-04-05 09:04 | MHIPNPDOC ---
[facility] Progress Note Progress Note DATE OF SERVICE: 04/05/21 The patient is fully cooperated with the medications and is now showing significant reduction in his psychomotor agitation. He is somewhat sedated and is sleeping late into the morning. His behavior has been in control, but he was still quite disorganized and rambling. He has no complaint of side effect, but still preoccupied with the paranoid thoughts about his neighbor. We will decrease his Ativan to half milligram 3 times a day and continue Risperdal and Depakote. HISTORY: . VITAL SIGNS: See below. NEW TEST RESULTS: . CURRENT MEDICATIONS: See below. MENTAL STATUS EXAMINATION: Patient is a 40-year old male, who is awake but somewhat drowsy. Speech: Is , pressured but not as productive. Language skills are fair. Thought processes including: ,flighty. Thought content: Marked the paranoid thoughts and some grandiose ideas . Abstract reasoning, and computation: poor. Description of associations: loose. Description of abnormal or psychotic thoughts: Paranoid and grandiose ideas. Judgment: , Poor. Insight: poor. Orientation: , Oriented. Recent and remote memory: poor. Attention span and concentration: poor. Language: . Fund of knowledge: . Mood: Irritable, sedated. Affect: Labile. DIAGNOSES: 1. . Bipolar disorder type I, mixed with psychotic symptoms 2. ., Rule out schizoaffective disorder 3. . ASSESSMENT:, Moderate reduction in psychomotor agitation MANAGEMENT PLAN: . Continue risperidone and Depakote. Reduce Ativan. TIME SPENT: 15 minutes. Vital Signs Vital Signs Date Time Temp Pulse Resp B/P (MAP) Pulse Ox O2 Delivery O2 Flow Rate FiO2 04/04/21 09:00 Room Air 04/04/21 06:35 97.2 92 18 112/74 (87) 100 Current Medications Current Medications Medications (Trade) Dose Ordered Sig/Dipti Route PRN Reason Start Time Stop Time Status Last Admin Dose Admin Al Hydrox/Mg Hydrox/Simethicone (Mylanta) 30 ml Q4HP PRN PO HEARTBURN/INDIGESTION 03/29/21 18:55 04/03/21 08:42 Calcium Carbonate (Tums) 500 mg BIDP PRN PO INDIGESTION 04/02/21 10:35 04/03/21 22:57 Divalproex Sodium (Depakote Er) 500 mg BID PO 04/03/21 09:00 04/04/21 20:11 Home Med (Med Rec Complete!) ASDIRECTED XX 03/29/21 20:55 03/29/21 20:57 DC Ibuprofen (Advil) 400 mg Q6HP PRN PO PAIN 03/29/21 18:55 04/04/21 20:12 Lorazepam (Ativan) 0.5 mg TID PO 04/05/21 09:00 Lorazepam (Ativan) 1 mg TID PO 03/30/21 09:00 04/05/21 07:20 DC 04/04/21 20:11 Magnesium Hydroxide (Milk Of Magnesia) 30 ml DAILYPRN PRN PO CONSTIPATION 03/29/21 18:55 04/02/21 16:13 Nicotine (Nicoderm Cq 21mg) 1 patch DAILY TD 03/30/21 09:00 Olanzapine (ZyPREXA ZYDIS) 5 mg Q6HP PRN PO AGITATION 03/29/21 18:55 04/04/21 05:18 Paliperidone (Invega) 3 mg QHS PO 03/29/21 21:00 03/30/21 09:13 DC 03/29/21 21:51 Paliperidone (Invega) 6 mg QHS PO 03/30/21 21:00 04/03/21 08:56 DC 04/01/21 19:59 Risperidone (RisperDAL) 2 mg BID PO 04/03/21 09:00 04/04/21 20:11 Trazodone HCl (Desyrel) 50 mg QHSP PRN PO INSOMNIA 03/31/21 00:15 04/03/21 21:13 Allergies Coded Allergies: No Known Allergies (Unverified , 11/30/20) BACILIO GUILLAUME M.D. Apr 05, 2021 09:04
[2021-04-05] MEDS: LORazepam 0.5 MG TAB PO SCH ×3 (09:48→20:47)
[2021-04-05] MEDS: risperiDONE 2 MG TAB PO SCH ×2 (09:48→20:47)
[2021-04-05] MEDS: DIVALPROEX 500MG *ER* TAB PO SCH ×2 (09:48→20:47)
[2021-04-05] MEDS: IBUPROFEN 400MG TAB PO PRN ×2 (11:54→22:26)
[2021-04-05 15:09] VITALS: BP 104/71
[2021-04-05] MEDS: traZODone 50 MG TAB PO PRN (22:26)
[2021-04-06] MEDS: OLANZapine ORAL DISINTEGRATING TAB 5MG PO PRN (00:10)
[2021-04-06 06:37] VITALS: BP 131/65
[2021-04-06] MEDS: LORazepam 0.5 MG TAB PO SCH ×3 (08:43→21:32)
[2021-04-06] MEDS: risperiDONE 2 MG TAB PO SCH ×2 (08:44→21:31)
[2021-04-06] MEDS: DIVALPROEX 500MG *ER* TAB PO SCH ×2 (08:44→21:31)
[2021-04-06] MEDS: NICOTINE 21MG/24HR 1 EA TRANSDERMAL TD SCH (08:45)
[2021-04-06] MEDS: IBUPROFEN 400MG TAB PO PRN (09:22)
--- NOTE | 2021-04-06 09:28 | MHIPNPDOC ---
[facility] Progress Note Progress Note DATE OF SERVICE: 04/06/21 The patient is much more alert and pleasant and productive. He is smiling easily and appropriately and denies any preoccupation with his paranoid fear and show ing marked reduction in irritability and labile mood. He is fully cooperating with the medicine is no complaint about side effects. Is willing to have blood work done to evaluate this. Valproic acid level. And does not appear to be overly sedated and showing moderate improvement. HISTORY: . VITAL SIGNS: See below. NEW TEST RESULTS: . CURRENT MEDICATIONS: See below. MENTAL STATUS EXAMINATION: Patient is a 40-year old male, who is , cooperative. Speech: Is productive and not as flighty. Language skills are good. Thought processes including: more relevant. Thought content: Not as preoccupied with his paranoia . Abstract reasoning, and computation: poor]. Description of associations: Better organize. Description of abnormal or psychotic thoughts: Denies any hallucination and is less paranoid. Judgment: Fair. Insight: fair.. Orientation: , Oriented. Recent and remote memory: Far. Attention span and concentration: poor]. Language: . Fund of knowledge: . Mood: , Not irritable and reports feeling better. Affect: More animated and appropriate. DIAGNOSES: 1. . Bipolar disorder, mixed 2. . 3. . ASSESSMENT:Showing some improvement MANAGEMENT PLAN: Continue the current medicine For stabilization. TIME SPENT: 20 minutes. Vital Signs Vital Signs Date Time Temp Pulse Resp B/P (MAP) Pulse Ox O2 Delivery O2 Flow Rate FiO2 04/06/21 06:37 97.7 91 12 131/65 (87) 97 Room Air Current Medications Current Medications Medications (Trade) Dose Ordered Sig/Dipti Route PRN Reason Start Time Stop Time Status Last Admin Dose Admin Al Hydrox/Mg Hydrox/Simethicone (Mylanta) 30 ml Q4HP PRN PO HEARTBURN/INDIGESTION 03/29/21 18:55 04/03/21 08:42 Calcium Carbonate (Tums) 500 mg BIDP PRN PO INDIGESTION 04/02/21 10:35 04/03/21 22:57 Divalproex Sodium (Depakote Er) 500 mg BID PO 04/03/21 09:00 04/06/21 08:44 Home Med (Med Rec Complete!) ASDIRECTED XX 03/29/21 20:55 03/29/21 20:57 DC Ibuprofen (Advil) 400 mg Q6HP PRN PO PAIN 03/29/21 18:55 04/05/21 22:26 Lorazepam (Ativan) 0.5 mg TID PO 04/05/21 09:00 04/06/21 08:43 Lorazepam (Ativan) 1 mg TID PO 03/30/21 09:00 04/05/21 07:20 DC 04/04/21 20:11 Magnesium Hydroxide (Milk Of Magnesia) 30 ml DAILYPRN PRN PO CONSTIPATION 03/29/21 18:55 04/02/21 16:13 Nicotine (Nicoderm Cq 21mg) 1 patch DAILY TD 03/30/21 09:00 Olanzapine (ZyPREXA ZYDIS) 5 mg Q6HP PRN PO AGITATION 03/29/21 18:55 04/06/21 00:10 Paliperidone (Invega) 3 mg QHS PO 03/29/21 21:00 03/30/21 09:13 DC 03/29/21 21:51 Paliperidone (Invega) 6 mg QHS PO 03/30/21 21:00 04/03/21 08:56 DC 04/01/21 19:59 Risperidone (RisperDAL) 2 mg BID PO 04/03/21 09:00 04/06/21 08:44 Trazodone HCl (Desyrel) 50 mg QHSP PRN PO INSOMNIA 03/31/21 00:15 04/05/21 22:26 Allergies Coded Allergies: No Known Allergies (Unverified , 11/30/20) BACILIO GUILLAUME M.D. Apr 06, 2021 09:28
[2021-04-06 17:33] VITALS: BP 141/77
[2021-04-06] MEDS: traZODone 50 MG TAB PO PRN (22:37)
[2021-04-07] MEDS: IBUPROFEN 400MG TAB PO PRN ×2 (04:38→20:28)
[2021-04-07 05:41] VITALS: BP 156/64
--- NOTE | 2021-04-07 07:56 | MHIPNPDOC ---
[facility] Progress Note Progress Note DATE OF SERVICE: 04/07/21 , The patient continued to show gradual improvement, especially with his psychomotor agitation and paranoid ideas. He is much less pressured and not as rambling and is not talking about his neighbor trying to hurt him. He is not irritable. There is much more pleasant, making jokes and socializing with other patients. He appears more spontaneous and does not feel so angry or fearful. Will get a Depakote level and CMP. HISTORY: . VITAL SIGNS: See below. NEW TEST RESULTS: . CURRENT MEDICATIONS: See below. MENTAL STATUS EXAMINATION: Patient is a 40-year old male, who is , pleasant and cooperative. Speech: Is more rational and coherent. Language skills are getting better. Thought processes including: , Relevant and organized. Thought content: , Not reporting any paranoid fear. Abstract reasoning, and computation: fair. Description of associations: Were organized. Description of abnormal or psychotic thoughts: Much less fearful or paranoid. Judgment: Fair. Insight: fair. Orientation: , Well oriented. Recent and remote memory: Fair. Attention span and concentration: Fair. Language: . Fund of knowledge: . Mood: Euthymic. Affect: More animated and spontaneous. DIAGNOSES: 1. . Bipolar disorder, mixed 2. ., Rule out schizoaffective disorder 3. . ASSESSMENT:Showing improvement MANAGEMENT PLAN: Evaluated with the blood work. Continue with the current medicine. TIME SPENT: 20 minutes. Vital Signs Vital Signs Date Time Temp Pulse Resp B/P (MAP) Pulse Ox O2 Delivery O2 Flow Rate FiO2 04/07/21 05:41 96.6 101 20 156/64 (94) 98 Room Air Current Medications Current Medications Medications (Trade) Dose Ordered Sig/Dipti Route PRN Reason Start Time Stop Time Status Last Admin Dose Admin Al Hydrox/Mg Hydrox/Simethicone (Mylanta) 30 ml Q4HP PRN PO HEARTBURN/INDIGESTION 03/29/21 18:55 04/03/21 08:42 Calcium Carbonate (Tums) 500 mg BIDP PRN PO INDIGESTION 04/02/21 10:35 04/03/21 22:57 Divalproex Sodium (Depakote Er) 500 mg BID PO 04/03/21 09:00 04/06/21 21:31 Home Med (Med Rec Complete!) ASDIRECTED XX 03/29/21 20:55 03/29/21 20:57 DC Ibuprofen (Advil) 400 mg Q6HP PRN PO PAIN 03/29/21 18:55 04/07/21 04:38 Lorazepam (Ativan) 0.5 mg TID PO 04/05/21 09:00 04/06/21 21:32 Lorazepam (Ativan) 1 mg TID PO 03/30/21 09:00 04/05/21 07:20 DC 04/04/21 20:11 Magnesium Hydroxide (Milk Of Magnesia) 30 ml DAILYPRN PRN PO CONSTIPATION 03/29/21 18:55 04/02/21 16:13 Nicotine (Nicoderm Cq 21mg) 1 patch DAILY TD 03/30/21 09:00 Olanzapine (ZyPREXA ZYDIS) 5 mg Q6HP PRN PO AGITATION 03/29/21 18:55 04/06/21 00:10 Paliperidone (Invega) 3 mg QHS PO 03/29/21 21:00 03/30/21 09:13 DC 03/29/21 21:51 Paliperidone (Invega) 6 mg QHS PO 03/30/21 21:00 04/03/21 08:56 DC 04/01/21 19:59 Risperidone (RisperDAL) 2 mg BID PO 04/03/21 09:00 04/06/21 21:31 Trazodone HCl (Desyrel) 50 mg QHSP PRN PO INSOMNIA 03/31/21 00:15 04/06/21 22:37 Allergies Coded Allergies: No Known Allergies (Unverified , 11/30/20) BACILIO GUILLAUME M.D. Apr 07, 2021 07:56
[2021-04-07] MEDS: LORazepam 0.5 MG TAB PO SCH ×3 (08:36→20:28)
[2021-04-07] MEDS: risperiDONE 2 MG TAB PO SCH ×2 (08:36→20:27)
[2021-04-07] MEDS: DIVALPROEX 500MG *ER* TAB PO SCH ×2 (08:36→20:27)
[2021-04-07] MEDS: NICOTINE 21MG/24HR 1 EA TRANSDERMAL TD SCH (08:37)
[2021-04-07] MEDS: CALCIUM CARBONATE 500 MG CHEW U/D PO PRN (08:56)
[2021-04-07 10:11] LABS: ALBUMIN 3.6 GM/DL (3.2-5.2); ALT/SGPT 35 U/L (12-78); BILIRUBIN,TOTAL 0.2 MG/DL (0.2-1.0); BLOOD UREA NITROGEN 13 MG/DL (7-18); CALCIUM LEVEL 9.1 MG/DL (8.5-10.1); CARBON DIOXIDE LEVEL 30 MEQ/L (21-32); CHLORIDE LEVEL 105 MEQ/L (98-107); CREATININE FOR GFR 0.78 MG/DL (0.70-1.30); GLOMERULAR FILTRATION RATE > 60.0 (>60); GLUCOSE, FASTING 92 MG/DL (70-100); POTASSIUM SERUM 4.7 MEQ/L (3.5-5.1); SODIUM LEVEL 139 MEQ/L (136-145); TOTAL PROTEIN 6.5 GM/DL (6.4-8.2); VALPROIC ACID (DEPAKOTE) 77.2 UG/ML (50.0-100.0)
[2021-04-07 16:33] VITALS: BP 146/73
[2021-04-07] MEDS: traZODone 50 MG TAB PO PRN (21:57)
[2021-04-08] MEDS: OLANZapine ORAL DISINTEGRATING TAB 5MG PO PRN (00:26)
[2021-04-08 06:00] VITALS: BP 124/63
[2021-04-08] MEDS: NICOTINE 21MG/24HR 1 EA TRANSDERMAL TD SCH (09:00)
[2021-04-08] MEDS: risperiDONE 2 MG TAB PO SCH ×2 (09:48→21:01)
[2021-04-08] MEDS: DIVALPROEX 500MG *ER* TAB PO SCH ×2 (09:48→21:00)
[2021-04-08] MEDS: LORazepam 0.5 MG TAB PO SCH ×3 (09:48→21:00)
[2021-04-08 16:32] VITALS: BP 125/75
[2021-04-08] MEDS: IBUPROFEN 400MG TAB PO PRN (16:50)
[2021-04-08] MEDS: traZODone 50 MG TAB PO PRN (22:09)
[2021-04-09 06:24] VITALS: BP 127/65
[2021-04-09] MEDS: IBUPROFEN 400MG TAB PO PRN ×3 (06:36→22:17)
[2021-04-09] MEDS: NICOTINE 21MG/24HR 1 EA TRANSDERMAL TD SCH (08:48)
[2021-04-09] MEDS: LORazepam 0.5 MG TAB PO SCH ×3 (08:48→20:20)
[2021-04-09] MEDS: risperiDONE 2 MG TAB PO SCH ×2 (08:48→20:20)
[2021-04-09] MEDS: DIVALPROEX 500MG *ER* TAB PO SCH ×2 (08:48→20:21)
[2021-04-09 17:31] VITALS: BP 125/64
[2021-04-09] MEDS: traZODone 50 MG TAB PO PRN (22:16)
[2021-04-09] MEDS: MAALOX 30 ML SUSP *UDC PO PRN (22:16)
[2021-04-10 06:43] VITALS: BP 115/56
[2021-04-10] MEDS: NICOTINE 21MG/24HR 1 EA TRANSDERMAL TD SCH (08:40)
[2021-04-10] MEDS: LORazepam 0.5 MG TAB PO SCH (08:41)
[2021-04-10] MEDS: DIVALPROEX 500MG *ER* TAB PO SCH (08:42)
[2021-04-10] MEDS: risperiDONE 2 MG TAB PO SCH (08:42)
[2021-04-10] MEDS ORDERED: RISP-9 PO (09:03)
[2021-04-10] MEDS ORDERED: DEPA500T2 PO (09:03)
[2021-04-10] MEDS ORDERED: TRAZ-252 PO (09:03)
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
== END 2021-04-10 12:30 | disposition home or self-care (01) | DRG 753 ==
LOC: M ED 20:15 → M ED INP 03-29 18:53 → M PSY 03-29 21:07
PROVIDERS: ADMIT Psychiatry & Neurology Psychiatry; ATTEND Psychiatry & Neurology Psychiatry
DX: F31.64 Bipolar disorder, current episode mixed, severe, with psychotic features (principal); E87.6 Hypokalemia; Z85.47 Personal history of malignant neoplasm of testis; M54.5 Low back pain; Z79.899 Other long term (current) drug therapy

== ENCOUNTER → 2021-05-19 | Outpatient (CLI) | payer OTHER, MEDICAID ==
[~2021-05-19] MED LIST changes: +DEPA500T2 PO; +RISP-9 PO; +TRAZ-252 PO
--- NOTE | 2021-05-19 16:03 | REP ---
INDICATION: L SHOULDER PAIN. COMPARISON: None. TECHNIQUE: Frontal views of the left shoulder with the humerus in internal and external rotation and a scapular Y-view. FINDINGS: There is no evidence of fracture, dislocation or subluxation. The acromioclavicular and glenohumeral joints are normal. The periarticular soft tissues are normal. The visualized lung field is normal. IMPRESSION: Normal left shoulder. <Electronically signed by Roberto Minor > 05/19/21 [id number]
== END ==
LOC: M RAD 15:31
PROVIDERS: ATTEND Physician Assistant Medical
DX: M25.512 Pain in left shoulder (principal)

== ENCOUNTER → 2022-01-10 | Outpatient (CLI) | payer MEDICAID, OTHER ==
[2022-01-10 10:30] LABS: LDH LACTATE DEHYDROGENASE 167 U/L (87-241)
== END ==
LOC: M RAD 08:48
PROVIDERS: ATTEND Urology
DX: C62.90 Malignant neoplasm of unspecified testis, unspecified whether descended or undescended (principal)

== ENCOUNTER → 2022-01-17 | Outpatient (CLI) | payer OTHER ==
[~2022-01-17] MED LIST changes: +ISOVUE-370 76% 100ML VIAL As Ordered ONE
== END ==
LOC: M RAD 13:16
PROVIDERS: ATTEND Urology
DX: C62.90 Malignant neoplasm of unspecified testis, unspecified whether descended or undescended (principal)
CPT/HCPCS: 74177; Q9967

== ENCOUNTER 2022-01-28 09:00 | Emergency (ER) | payer OTHER ==
[~2022-01-28] VITALS: Ht 162.6 cm; Wt 81.3 kg
[2022-01-28 09:00] VITALS: BP 122/74
[~2022-01-28 09:00] MED LIST changes: -ISOVUE-370 76% 100ML VIAL As Ordered ONE
== END 2022-01-28 09:38 | disposition left against medical advice (07) ==
LOC: M ED 09:00
DX: Z53.21 Procedure and treatment not carried out due to patient leaving prior to being seen by health care provider (principal)

== ENCOUNTER 2022-01-29 15:01 | Inpatient (IN) | payer MEDICARE, OTHER ==
[~2022-01-29] VITALS: Ht 165.1 cm; Wt 60.9 kg
[2022-01-29 16:37] LABS: HEMOGLOBIN 15.3 g/dl (13.5-17.5); MEAN CORPUSCULAR VOLUME 85.2 fl (80.0-96.0); PLATELET COUNT, AUTOMATED 362 10^3/uL (150-450); RED BLOOD COUNT 5.28 10^6/uL (4.30-6.10); WHITE BLOOD COUNT 12.6 10^3/uL (4.0-10.0)
[2022-01-29] MEDS ORDERED: LORazepam 2 MG/ML VIAL IM ONE (16:45)
[2022-01-29] MEDS ORDERED: HALOPERIDOL 5MG/ML VIAL (J1630 PER 1) IM ONE (16:45)
[2022-01-29 17:05] LABS: ALBUMIN 4.6 GM/DL (3.2-5.2); ALT/SGPT 33 U/L (12-78); BILIRUBIN,DIRECT 0.2 MG/DL (0.0-0.2); BILIRUBIN,TOTAL 0.8 MG/DL (0.2-1.0); BLOOD UREA NITROGEN 10 MG/DL (7-18); CALCIUM LEVEL 9.9 MG/DL (8.5-10.1); CARBON DIOXIDE LEVEL 28 MEQ/L (21-32); CHLORIDE LEVEL 107 MEQ/L (98-107); CREATININE FOR GFR 0.95 MG/DL (0.70-1.30); ETHYL ALCOHOL (ETHANOL) < 0.003 % (0.000-0.010); GLOMERULAR FILTRATION RATE > 60.0 (>60); GLUCOSE, FASTING 103 MG/DL (70-100); POTASSIUM SERUM 4.1 MEQ/L (3.5-5.1); SODIUM LEVEL 140 MEQ/L (136-145); TOTAL PROTEIN 7.6 GM/DL (6.4-8.2)
[2022-01-29 17:06] LABS: ACETAMINOPHEN LEVEL < 2.0 UG/ML (10.0-30.0); SALICYLATE LEVEL < 1.7 MG/DL (5.0-30.0)
[2022-01-29] MEDS ORDERED: HOME MED LIST COMPLETE! XX SCH (19:25)
[2022-01-29 20:09] LABS: AMPHETAMINES LEVEL URINE NEGATIVE (NEGATIVE); BARBITURATES URINE NEGATIVE (NEGATIVE); BENZODIAZEPINES URINE NEGATIVE (NEGATIVE); CANNABINOIDS URINE NEGATIVE (NEGATIVE); COCAINE METABOLITE URINE NEGATIVE (NEGATIVE); METHADONE URINE NEGATIVE (NEGATIVE); OPIATES URINE NEGATIVE (NEGATIVE); PHENCYCLIDINE URINE NEGATIVE (NEGATIVE)
[2022-01-29 20:47] LABS: RSV AMPLIFICATION NEGATIVE (NEGATIVE)
[2022-01-30] MEDS: NICOTINE 14 MG/24 HR TRANSDERMAL TD SCH (09:00)
[2022-01-30] MEDS ORDERED: ACETAMINOPHEN TAB 650MG DOSE (2X325MG) PO ONE (09:10)
[2022-01-30] MEDS ORDERED: traZODone 50 MG TAB PO PRN (12:50)
[2022-01-30 15:09] VITALS: BP 156/80
[2022-01-30] MEDS: ACETAMINOPHEN TAB 650MG DOSE (2X325MG) PO PRN (17:19)
[2022-01-30] MEDS: MAALOX 30 ML SUSP *UDC PO PRN (21:43)
[2022-01-31] MEDS: ACETAMINOPHEN TAB 650MG DOSE (2X325MG) PO PRN ×3 (00:10→23:58)
[2022-01-31 07:05] VITALS: BP 135/82
[2022-01-31] MEDS: NICOTINE 14 MG/24 HR TRANSDERMAL TD SCH (08:44)
[2022-01-31] MEDS: risperiDONE 2 MG TAB PO SCH ×2 (10:12→20:05)
[2022-01-31] MEDS: LIDOCAINE 5% (LIDODERM) PATCH TD SCH (12:05)
[2022-01-31] MEDS: MAALOX 30 ML SUSP *UDC PO PRN (15:49)
[2022-01-31 19:08] VITALS: BP 135/83
[2022-01-31] MEDS: **NOTE PATIENT COMMENT** MISC XX SCH (20:03)
[2022-01-31] MEDS: MOM 30ML SUSPENSION UDC PO PRN ×2 (20:05→23:59)
[2022-01-31] MEDS ORDERED: DIVALPROEX 250MG *ER* TAB PO SCH (21:00)
[2022-02-01 06:46] VITALS: BP 117/68
[2022-02-01] MEDS: NICOTINE 14 MG/24 HR TRANSDERMAL TD SCH (09:00)
[2022-02-01] MEDS: risperiDONE 2 MG TAB PO SCH ×2 (09:12→21:17)
[2022-02-01] MEDS: LIDOCAINE 5% (LIDODERM) PATCH TD SCH (09:13)
[2022-02-01 18:55] VITALS: BP 135/83
[2022-02-01] MEDS: DIVALPROEX 500MG *ER* TAB PO SCH (21:17)
[2022-02-01] MEDS: **NOTE PATIENT COMMENT** MISC XX SCH (21:19)
[2022-02-01] MEDS: MOM 30ML SUSPENSION UDC PO PRN (21:27)
[2022-02-02] MEDS: ACETAMINOPHEN TAB 650MG DOSE (2X325MG) PO PRN ×2 (01:25→13:08)
[2022-02-02 05:58] VITALS: BP 124/76
[2022-02-02 08:17] LABS: CHOLESTEROL RISK RATIO 1.903 (<5)
[2022-02-02] MEDS: NICOTINE 14 MG/24 HR TRANSDERMAL TD SCH (09:00)
[2022-02-02] MEDS: risperiDONE 2 MG TAB PO SCH (09:13)
[2022-02-02] MEDS: LIDOCAINE 5% (LIDODERM) PATCH TD SCH (09:14)
[2022-02-02] MEDS ORDERED: PALIPERIDONE PALMITATE 234MG/1.5ML INJ (INVEGA)(FREE PSY INPT ONLY) IM ONE (12:00)
[2022-02-02 16:50] VITALS: BP 133/83
[2022-02-02] MEDS: DIVALPROEX 500MG *ER* TAB PO SCH (19:59)
[2022-02-02] MEDS: risperiDONE 1 MG TAB PO SCH (19:59)
[2022-02-02] MEDS: **NOTE PATIENT COMMENT** MISC XX SCH (20:01)
[2022-02-03] MEDS: NICOTINE 14 MG/24 HR TRANSDERMAL TD SCH (09:00)
[2022-02-03] MEDS: LIDOCAINE 5% (LIDODERM) PATCH TD SCH (09:23)
[2022-02-03] MEDS: risperiDONE 1 MG TAB PO SCH ×2 (09:23→21:25)
[2022-02-03] MEDS: ACETAMINOPHEN TAB 650MG DOSE (2X325MG) PO PRN (10:20)
[2022-02-03] MEDS: LORazepam 1 MG TAB PO PRN ×2 (15:52→21:35)
[2022-02-03 16:25] VITALS: BP 129/67
[2022-02-03] MEDS: DIVALPROEX 500MG *ER* TAB PO SCH (21:26)
[2022-02-03] MEDS: **NOTE PATIENT COMMENT** MISC XX SCH (22:05)
[2022-02-04 06:00] VITALS: BP 116/83
[2022-02-04] MEDS: ACETAMINOPHEN TAB 650MG DOSE (2X325MG) PO PRN (07:24)
[2022-02-04] MEDS: risperiDONE 1 MG TAB PO SCH ×2 (08:34→20:15)
[2022-02-04] MEDS: LIDOCAINE 5% (LIDODERM) PATCH TD SCH (08:34)
[2022-02-04] MEDS: NICOTINE 14 MG/24 HR TRANSDERMAL TD SCH (08:36)
[2022-02-04] MEDS: MOM 30ML SUSPENSION UDC PO PRN (12:03)
[2022-02-04 16:31] VITALS: BP 133/82
[2022-02-04] MEDS: DOCUSATE SODIUM 100MG CAPSULE PO PRN (17:18)
[2022-02-04] MEDS: **NOTE PATIENT COMMENT** MISC XX SCH (20:13)
[2022-02-04] MEDS: DIVALPROEX 500MG *ER* TAB PO SCH (20:15)
[2022-02-05] MEDS: LORazepam 1 MG TAB PO PRN (01:59)
[2022-02-05] MEDS: ACETAMINOPHEN TAB 650MG DOSE (2X325MG) PO PRN ×3 (02:02→23:16)
[2022-02-05] MEDS: NICOTINE 14 MG/24 HR TRANSDERMAL TD SCH (09:00)
[2022-02-05] MEDS: LIDOCAINE 5% (LIDODERM) PATCH TD SCH (09:30)
[2022-02-05] MEDS: risperiDONE 1 MG TAB PO SCH ×2 (09:31→20:06)
[2022-02-05] MEDS ORDERED: PALIPERIDONE PALMITATE 156MG/1ML INJ(INVEGA)(FREE PSY INPT ONLY) IM ONE (11:00)
[2022-02-05] MEDS: MAALOX 30 ML SUSP *UDC PO PRN (17:27)
[2022-02-05 19:23] VITALS: BP 132/74
[2022-02-05] MEDS: DIVALPROEX 500MG *ER* TAB PO SCH (20:06)
[2022-02-05] MEDS: DOCUSATE SODIUM 100MG CAPSULE PO PRN (20:06)
[2022-02-05] MEDS: **NOTE PATIENT COMMENT** MISC XX SCH (20:07)
[2022-02-06 06:49] VITALS: BP 119/68
[2022-02-06] MEDS: LIDOCAINE 5% (LIDODERM) PATCH TD SCH (08:46)
[2022-02-06] MEDS: risperiDONE 1 MG TAB PO SCH ×2 (08:46→20:11)
[2022-02-06] MEDS: NICOTINE 14 MG/24 HR TRANSDERMAL TD SCH (09:00)
[2022-02-06 15:49] VITALS: BP 141/73
[2022-02-06] MEDS: DIVALPROEX 500MG *ER* TAB PO SCH (20:11)
[2022-02-06] MEDS: **NOTE PATIENT COMMENT** MISC XX SCH (21:19)
[2022-02-07] MEDS: ACETAMINOPHEN TAB 650MG DOSE (2X325MG) PO PRN (03:06)
[2022-02-07 06:47] VITALS: BP 124/77
[2022-02-07] MEDS: LIDOCAINE 5% (LIDODERM) PATCH TD SCH (08:22)
[2022-02-07] MEDS: risperiDONE 1 MG TAB PO SCH ×2 (08:22→20:04)
[2022-02-07] MEDS: NICOTINE 14 MG/24 HR TRANSDERMAL TD SCH (08:25)
[2022-02-07] MEDS: MOM 30ML SUSPENSION UDC PO PRN (09:43)
[2022-02-07] MEDS: DIVALPROEX 500MG *ER* TAB PO SCH (20:04)
[2022-02-07] MEDS: **NOTE PATIENT COMMENT** MISC XX SCH (20:32)
[2022-02-08 06:47] VITALS: BP 128/88
[2022-02-08] MEDS ORDERED: DEPA500T2 PO (07:42)
[2022-02-08] MEDS ORDERED: INVE234I IM (07:42)
[2022-02-08] MEDS ORDERED: RISP-8 PO (07:42)
[2022-02-08] MEDS ORDERED: NICO14PA TD (07:42)
[2022-02-08] MEDS ORDERED: LIDO5TD TD (07:42)
[2022-02-08] MEDS: LIDOCAINE 5% (LIDODERM) PATCH TD SCH (08:31)
[2022-02-08] MEDS: NICOTINE 14 MG/24 HR TRANSDERMAL TD SCH (08:31)
[2022-02-08] MEDS: risperiDONE 1 MG TAB PO SCH (08:32)
== END 2022-02-08 12:31 | disposition home or self-care (01) | DRG 885 ==
LOC: M ED 15:01 → M ED INP 01-30 12:48 → M PSY 01-30 14:42
PROVIDERS: ADMIT Student in an Organized Health Care Education/Training Program; ATTEND Student in an Organized Health Care Education/Training Program
DX: F31.60 Bipolar disorder, current episode mixed, unspecified (principal); F17.200 Nicotine dependence, unspecified, uncomplicated; F10.10 Alcohol abuse, uncomplicated; F12.90 Cannabis use, unspecified, uncomplicated; Z91.14 Patient's other noncompliance with medication regimen; Z79.899 Other long term (current) drug therapy; Z85.47 Personal history of malignant neoplasm of testis

== ENCOUNTER → 2022-12-17 | Outpatient (CLI) | payer MEDICARE, OTHER ==
[~2022-12-17] MED LIST changes: -BENZ-52 PO; +BENZ1TAB5 PO; +INVE234I IM; +LIDO5TD TD; +NICO14PA TD; +RISP-8 PO
== END ==
LOC: M WUC 13:15
PROVIDERS: ATTEND Nurse Practitioner Family
DX: M54.50 Low back pain, unspecified (principal)

== ENCOUNTER → 2023-01-22 | Outpatient (CLI) | payer OTHER, MEDICARE | LOC: M LAB 10:47 | PROVIDERS: ATTEND Urology | DX: C62.90 Malignant neoplasm of unspecified testis, unspecified whether descended or undescended (principal) ==

== ENCOUNTER → 2023-01-28 | Outpatient (REF) | payer OTHER, MEDICARE ==
[2023-01-28 17:08] LABS: BASO # 0.1 10^3/uL (0.0-0.2); BASO % 1.1 % (0.0-1.0); EOS # 0.4 10^3/uL (0.0-0.5); EOS % 3.8 % (0.0-3.0); HEMATOCRIT 46.2 % (42.0-52.0); LYMPH # 2.6 10^3/uL (1.5-5.0); MEAN CORPUSCULAR HEMOGLOBIN 28.1 pg (27.0-33.0); MEAN CORPUSCULAR HGB CONC 32.5 g/dl (32.0-36.5); MEAN CORPUSCULAR VOLUME 86.7 fl (80.0-96.0); MONO % 10.7 % (2.0-8.0); NEUTROPHILS # 5.4 10^3/uL (1.5-8.5); NEUTROPHILS % 57.1 % (36.0-66.0); PLATELET COUNT, AUTOMATED 311 10^3/uL (150-450); RED BLOOD COUNT 5.33 10^6/uL (4.30-6.10); WHITE BLOOD COUNT 9.5 10^3/uL (4.0-10.0)
[2023-01-28 17:30] LABS: ALBUMIN 4.2 G/DL (3.2-5.2); ALKALINE PHOSPHATASE 86 U/L (46-116); ALT/SGPT 25 U/L (7.0-40); AST/SGOT 18 U/L (<34); BILIRUBIN,TOTAL 0.4 MG/DL (0.3-1.2); BLOOD UREA NITROGEN 7 MG/DL (9-23); CALCIUM LEVEL 9.6 MG/DL (8.5-10.1); CARBON DIOXIDE LEVEL 30 MMOL/L (20-31); CHLORIDE LEVEL 104 MMOL/L (98-107); CHOLESTEROL LEVEL 138 MG/DL (<200); CHOLESTEROL RISK RATIO 2.64 (<5); CREATININE FOR GFR 1.11 MG/DL (0.70-1.30); GLOMERULAR FILTRATION RATE > 60.0 (>60); GLUCOSE, FASTING 69 MG/DL (60-100); HDL CHOLESTEROL 52.2 MG/DL (>40); LDL CHOLESTEROL 63.8 MG/DL (<100); NON-HDL-C 85.8 MG/DL; POTASSIUM SERUM 5.3 MMOL/L (3.5-5.1); SODIUM LEVEL 138 MMOL/L (136-145); TOTAL PROTEIN 6.7 G/DL (5.7-8.2); TRIGLYCERIDES LEVEL 110 MG/DL (<150)
[2023-01-28 17:32] LABS: THYROID STIMULATING HORMONE 2.394 uIU/ML (0.55-4.78); TOTAL 25(OH) VITAMIN D 24.1 NG/ML (20.0-100.0)
[2023-01-28 18:00] LABS: HEMOGLOBIN A1c 5.2 % (4.0-6.0)
== END ==
LOC: M LAB REF 16:15
PROVIDERS: ATTEND Nurse Practitioner Family
DX: Z13.228 Encounter for screening for other metabolic disorders (principal)

== ENCOUNTER 2024-09-13 07:07 | Inpatient (IN) | payer MEDICAID, MEDICARE, OTHER ==
[~2024-09-13 07:07] MED LIST changes: +RISP-105 PO; +RISP-106 PO; -RISP-8 PO; -RISP-9 PO
[2024-09-13 07:47] LABS: HEMATOCRIT 44.2 % (42.0-52.0); HEMOGLOBIN 15.3 g/dl (13.5-17.5); MEAN CORPUSCULAR HEMOGLOBIN 28.8 pg (27.0-33.0); MEAN CORPUSCULAR HGB CONC 34.6 g/dl (32.0-36.5); MEAN CORPUSCULAR VOLUME 83.2 fl (80.0-96.0); PLATELET COUNT, AUTOMATED 327 10^3/uL (150-450); RED BLOOD COUNT 5.31 10^6/uL (4.30-6.10)
[2024-09-13] MEDS: LORazepam 1 MG TAB PO ONE (08:01)
[2024-09-13 08:16] LABS: ETHYL ALCOHOL (ETHANOL) < 0.003 % (0.000-0.010)
[2024-09-13 08:18] LABS: ALBUMIN 4.3 G/DL (3.2-5.2); ALKALINE PHOSPHATASE 92 U/L (40-129); ALT/SGPT 18 U/L (7.0-40); AST/SGOT 14 U/L (<34); BILIRUBIN,DIRECT 0.2 MG/DL (<0.4); BILIRUBIN,TOTAL 0.5 MG/DL (0.3-1.2); BLOOD UREA NITROGEN 7 MG/DL (9-23); CALCIUM LEVEL 9.9 MG/DL (8.5-10.1); CARBON DIOXIDE LEVEL 27 MMOL/L (20-31); CHLORIDE LEVEL 96 MMOL/L (98-107); GLOMERULAR FILTRATION RATE > 60.0 (>60); GLUCOSE, FASTING 120 MG/DL (60-100); SALICYLATE LEVEL < 3.0 MG/DL (<30); SODIUM LEVEL 129 MMOL/L (136-145); TOTAL PROTEIN 7.4 G/DL (5.7-8.2)
[2024-09-13 08:20] LABS: THYROID STIMULATING HORMONE 1.303 uIU/ML (0.55-4.78)
[2024-09-13 09:06] LABS: AMPHETAMINES LEVEL URINE NEGATIVE (NEGATIVE); BARBITURATES URINE NEGATIVE (NEGATIVE); BENZODIAZEPINES URINE NEGATIVE (NEGATIVE); COCAINE METABOLITE URINE NEGATIVE (NEGATIVE); METHADONE URINE NEGATIVE (NEGATIVE); OPIATES URINE NEGATIVE (NEGATIVE); PHENCYCLIDINE URINE NEGATIVE (NEGATIVE)
[2024-09-13 09:16] LABS: CANNABINOIDS URINE POSITIVE (NEGATIVE)
[2024-09-13] MEDS ORDERED: MOM 30ML SUSPENSION UDC PO PRN (15:50)
[2024-09-13] MEDS ORDERED: MAALOX 30 ML SUSP *UDC PO PRN (15:50)
[2024-09-13] MEDS ORDERED: RISP-105 PO (16:57)
[2024-09-13] MEDS ORDERED: INVE234I IM (16:57)
[2024-09-13] MEDS ORDERED: DIVA500T9 PO (16:57)
[2024-09-13] MEDS ORDERED: HOME MED LIST COMPLETE! XX SCH (17:00)
[2024-09-13 18:00] VITALS: BP 139/92; TEMP 97.6; O2SAT 100
[2024-09-13] MEDS: ACETAMINOPHEN 325 MG TAB PO PRN (21:40)
[2024-09-13] MEDS: traZODone 50 MG TAB PO PRN (22:39)
[2024-09-13] MEDS: diphenhydrAMINE 25MG CAP PO PRN (22:39)
[2024-09-14 06:48] VITALS: BP 158/87; TEMP 97.3; O2SAT 93
[2024-09-14] MEDS: RISPERIDONE 1 MG TAB PO SCH (09:12)
[2024-09-14 14:48] VITALS: BP 131/63; TEMP 98.2; O2SAT 100
[2024-09-14 20:29] LABS: BLOOD UREA NITROGEN 6 MG/DL (9-23); CALCIUM LEVEL 9.9 MG/DL (8.5-10.1); CARBON DIOXIDE LEVEL 28 MMOL/L (20-31); CHLORIDE LEVEL 104 MMOL/L (98-107); CREATININE FOR GFR 0.84 MG/DL (0.70-1.30); GLOMERULAR FILTRATION RATE > 60.0 (>60); GLUCOSE, FASTING 112 MG/DL (60-100); POTASSIUM SERUM 4.8 MMOL/L (3.5-5.1); SODIUM LEVEL 137 MMOL/L (136-145)
[2024-09-14] MEDS: DIVALPROEX 500MG *ER* TAB PO SCH (20:57)
[2024-09-15 06:49] VITALS: BP 161/72; TEMP 97.4; O2SAT 96
[2024-09-15 08:32] LABS: BLOOD UREA NITROGEN < 5 MG/DL (9-23); CALCIUM LEVEL 9.9 MG/DL (8.5-10.1); CARBON DIOXIDE LEVEL 28 MMOL/L (20-31); CHLORIDE LEVEL 102 MMOL/L (98-107); CREATININE FOR GFR 0.86 MG/DL (0.70-1.30); GLOMERULAR FILTRATION RATE > 60.0 (>60); GLUCOSE, FASTING 100 MG/DL (60-100); POTASSIUM SERUM 4.1 MMOL/L (3.5-5.1); SODIUM LEVEL 135 MMOL/L (136-145)
[2024-09-15 14:59] VITALS: BP 135/74; TEMP 97.4; O2SAT 98
[2024-09-15] MEDS: IBUPROFEN 400MG TAB PO PRN (16:14)
[2024-09-16 06:04] VITALS: BP 120/78; TEMP 98; O2SAT 99
[2024-09-16] MEDS ORDERED: DIPH-435 PO (11:25)
[2024-09-16] MEDS ORDERED: TRAZ-252 PO (11:25)
[2024-09-16] MEDS ORDERED: RISP1TAB42 PO (14:02)
[2024-09-16] MEDS ORDERED: DEPA1TAB3 PO (14:05)
== END 2024-09-16 14:03 | disposition home or self-care (01) | DRG 753 ==
LOC: M ED 07:07 → M ED INP 15:46 → M PSY 16:45
PROVIDERS: ADMIT Psychiatry & Neurology Psychiatry; ATTEND Psychiatry & Neurology Psychiatry
DX: F31.9 Bipolar disorder, unspecified (principal); G89.29 Other chronic pain; M54.50 Low back pain, unspecified; F17.210 Nicotine dependence, cigarettes, uncomplicated; Z90.79 Acquired absence of other genital organ(s); Z79.899 Other long term (current) drug therapy; Z85.47 Personal history of malignant neoplasm of testis; E87.1 Hypo-osmolality and hyponatremia

== ENCOUNTER 2024-09-25 08:41 | Inpatient (IN) | payer MEDICAID, OTHER ==
[~2024-09-25] VITALS: Ht 172.7 cm; Wt 58.6 kg
[~2024-09-25 08:41] MED LIST changes: +DEPA1TAB3 PO; +DIPH-435 PO; +DIVA500T9 PO; +RISP1TAB42 PO
[2024-09-25] MEDS: OLANZapine ORAL DISINTEGRATING TAB 5MG PO ONE (08:45)
[2024-09-25] MEDS: RISPERIDONE 1 MG TAB PO SCH (09:00)
[2024-09-25 09:09] LABS: HEMATOCRIT 41.3 % (42.0-52.0); HEMOGLOBIN 13.6 g/dl (13.5-17.5); MEAN CORPUSCULAR HEMOGLOBIN 28.6 pg (27.0-33.0); MEAN CORPUSCULAR HGB CONC 32.9 g/dl (32.0-36.5); MEAN CORPUSCULAR VOLUME 86.9 fl (80.0-96.0); PLATELET COUNT, AUTOMATED 395 10^3/uL (150-450); RED BLOOD COUNT 4.75 10^6/uL (4.30-6.10)
[2024-09-25 09:30] LABS: ETHYL ALCOHOL (ETHANOL) < 0.003 % (0.000-0.010)
[2024-09-25 09:32] LABS: ALKALINE PHOSPHATASE 73 U/L (40-129); ALT/SGPT 40 U/L (7.0-40); AST/SGOT 61 U/L (<34); BILIRUBIN,DIRECT 0.3 MG/DL (<0.4); BILIRUBIN,TOTAL 0.7 MG/DL (0.3-1.2); BLOOD UREA NITROGEN 22 MG/DL (9-23); CARBON DIOXIDE LEVEL 25 MMOL/L (20-31); CHLORIDE LEVEL 105 MMOL/L (98-107); CREATININE FOR GFR 0.84 MG/DL (0.70-1.30); GLOMERULAR FILTRATION RATE > 60.0 (>60); GLUCOSE, FASTING 123 MG/DL (60-100); SALICYLATE LEVEL < 3.0 MG/DL (<30); SODIUM LEVEL 140 MMOL/L (136-145)
[2024-09-25] MEDS ORDERED: diphenhydrAMINE 50MG/ML VIAL As Ordered ONE (09:45)
[2024-09-25] MEDS: HALOPERIDOL LACTATE 5MG/ML VIAL IM STA (09:53)
[2024-09-25] MEDS: LORazepam 2 MG/ML 1ML VIAL IM STA (09:54)
[2024-09-25] MEDS: diphenhydrAMINE 50MG/ML VIAL IM STA (09:54)
[2024-09-25] MEDS ORDERED: TRAZ-252 PO (10:25)
[2024-09-25] MEDS ORDERED: DIPH-435 PO (10:25)
[2024-09-25] MEDS ORDERED: HOME MED LIST COMPLETE! XX SCH (10:25)
[2024-09-25] MEDS: DIVALPROEX 500 MG TAB PO SCH (20:19)
[2024-09-26 08:10] VITALS: BP 125/72; TEMP 97.6; O2SAT 100
[2024-09-26] MEDS: IBUPROFEN 400MG TAB PO PRN (08:55)
[2024-09-26] MEDS: ACETAMINOPHEN 325 MG TAB PO PRN (11:08)
[2024-09-26] MEDS: diphenhydrAMINE 25MG CAP PO PRN (11:09)
[2024-09-26 15:02] VITALS: BP 130/72; TEMP 98; O2SAT 97
[2024-09-26] MEDS: SIMETHICONE 80MG CHEW TAB PO PRN (18:14)
[2024-09-26] MEDS: traZODone 50 MG TAB PO PRN (22:56)
[2024-09-27] MEDS: MOM 30ML SUSPENSION UDC PO PRN (00:06)
[2024-09-27] MEDS: FLUZONE VACCINE TRIVALENT PF(2024-25) 0.5ML SYRINGE IM.IMMUN ONE (08:08)
[2024-09-27] MEDS: diphenhydrAMINE 50MG CAP PO STA (09:36)
[2024-09-27 12:05] VITALS: BP 142/72; TEMP 97.5; O2SAT 99
[2024-09-27] MEDS: MAALOX 30 ML SUSP *UDC PO PRN (12:15)
[2024-09-27 14:56] VITALS: BP 128/72; TEMP 98.9; O2SAT 99
[2024-09-27] MEDS: risperiDONE 2 MG TAB PO SCH (20:00)
[2024-09-28 15:40] VITALS: BP 137/60; TEMP 97.6; O2SAT 99
[2024-09-29 06:26] VITALS: BP 137/77; TEMP 97.9; O2SAT 98
[2024-09-29 16:27] VITALS: BP 109/61; TEMP 98.3; O2SAT 99
[2024-09-30 07:13] VITALS: BP 129/65; TEMP 98.2; O2SAT 96
[2024-09-30 16:13] VITALS: BP 133/73; TEMP 97.2; O2SAT 100
[2024-09-30] MEDS: QUEtiapine FUMARATE 50MG TAB PO PRN (23:04)
[2024-10-01] MEDS: NICOTINE POLACRILEX 2 MG GUM PO PRN (00:20)
[2024-10-01 06:54] VITALS: BP 128/59; TEMP 98.1; O2SAT 97
[2024-10-01 14:50] VITALS: BP 142/76; TEMP 98; O2SAT 95
[2024-10-02 06:28] VITALS: BP 133/69; TEMP 98; O2SAT 96
[2024-10-02] MEDS: HALOPERIDOL DECANOATE 100 MG/ML 1ML VIAL IM SCH (13:51)
[2024-10-02] MEDS: diphenhydrAMINE 50MG CAP PO ONE (15:25)
[2024-10-02] MEDS: BENZTROPINE 1 MG TAB PO ONE (15:26)
[2024-10-02 16:10] VITALS: BP 137/73; TEMP 98.5; O2SAT 98
[2024-10-02] MEDS: BENZTROPINE 1 MG TAB PO SCH (20:53)
[2024-10-02] MEDS: RISPERIDONE 1 MG TAB PO SCH (20:53)
[2024-10-02] MEDS: diphenhydrAMINE 50MG CAP PO PRN (23:46)
[2024-10-03 06:20] VITALS: BP 131/65; TEMP 98.1; O2SAT 98
[2024-10-03 15:46] VITALS: BP 117/67; TEMP 98.2; O2SAT 98
[2024-10-04 06:51] VITALS: BP 118/82; TEMP 97.5; O2SAT 95
[2024-10-04 16:36] VITALS: BP 153/78; TEMP 97.4; O2SAT 100
[2024-10-05 06:44] VITALS: BP 116/68; TEMP 98.2; O2SAT 100
[2024-10-05] MEDS: ANALGESIC BALM CRM 3OZ TOP SCH (09:00)
[2024-10-05 16:57] VITALS: BP 121/68; TEMP 97.3; O2SAT 100
[2024-10-06 06:38] VITALS: BP 119/57; TEMP 98.8; O2SAT 98
[2024-10-06] MEDS: diphenhydrAMINE 25MG CAP PO ONE (12:53)
[2024-10-06 15:03] VITALS: BP 122/60; TEMP 98.5; O2SAT 98
[2024-10-07 06:38] VITALS: BP 139/67; TEMP 98.4; O2SAT 99
[2024-10-07] MEDS ORDERED: BENZ1TAB5 PO (12:10)
[2024-10-07] MEDS ORDERED: DIPH50CA PO (12:10)
[2024-10-07] MEDS ORDERED: HALO10AM IM (12:10)
== END 2024-10-07 12:45 | disposition home or self-care (01) | DRG 753 ==
LOC: M ED 08:41 → M ED INP 15:17 → M PSY 16:13
PROVIDERS: ADMIT Psychiatry & Neurology Psychiatry; ATTEND Psychiatry & Neurology Psychiatry
DX: F31.9 Bipolar disorder, unspecified (principal); F17.200 Nicotine dependence, unspecified, uncomplicated; F12.90 Cannabis use, unspecified, uncomplicated; Z79.899 Other long term (current) drug therapy; M54.59 Other low back pain; Z85.47 Personal history of malignant neoplasm of testis

== ENCOUNTER 2024-10-08 22:38 | Emergency (ER) | payer MEDICAID, OTHER ==
[~2024-10-08] VITALS: Ht 172.7 cm; Wt 63.0 kg
[~2024-10-08 22:38] MED LIST changes: +DIPH50CA PO; +HALO10AM IM
[2024-10-08 22:42] VITALS: BP 122/73; TEMP 98.2; O2SAT 99
[2024-10-08 23:13] LABS: BASO # 0.1 10^3/uL (0.0-0.2); BASO % 0.6 % (0.0-1.0); EOS # 0.3 10^3/uL (0.0-0.5); EOS % 3.2 % (0.0-3.0); HEMATOCRIT 38.1 % (42.0-52.0); HEMOGLOBIN 12.3 g/dl (13.5-17.5); LYMPH # 2.1 10^3/uL (1.5-5.0); LYMPH % 24.2 % (24.0-44.0); MEAN CORPUSCULAR HEMOGLOBIN 28.4 pg (27.0-33.0); MEAN CORPUSCULAR HGB CONC 32.3 g/dl (32.0-36.5); MONO # 1.3 10^3/uL (0.0-0.8); MONO % 14.7 % (2.0-8.0); NEUTROPHILS % 56.6 % (36.0-66.0); PLATELET COUNT, AUTOMATED 385 10^3/uL (150-450); RED BLOOD COUNT 4.33 10^6/uL (4.30-6.10); WHITE BLOOD COUNT 8.7 10^3/uL (4.0-10.0)
[2024-10-08 23:42] LABS: BLOOD UREA NITROGEN 10 MG/DL (9-23); CALCIUM LEVEL 9.1 MG/DL (8.5-10.1); CARBON DIOXIDE LEVEL 30 MMOL/L (20-31); CHLORIDE LEVEL 103 MMOL/L (98-107); CK-MB VALUE MASS < 1.0 NG/ML (<3.6); CPK CREATINE PHOSPHOKINASE 59 U/L (46-171); CREATININE FOR GFR 0.77 MG/DL (0.70-1.30); GLOMERULAR FILTRATION RATE > 60.0 (>60); GLUCOSE, FASTING 96 MG/DL (60-100); MB/CK RELATIVE INDEX 1.69 (< OR =4); POTASSIUM SERUM 4.6 MMOL/L (3.5-5.1); SODIUM LEVEL 139 MMOL/L (136-145)
== END 2024-10-09 00:30 | disposition left against medical advice (07) ==
LOC: M ED 10-09 00:19
DX: Z53.21 Procedure and treatment not carried out due to patient leaving prior to being seen by health care provider (principal)

== ENCOUNTER 2024-11-23 10:33 | Emergency (ER) | payer OTHER ==
[~2024-11-23] VITALS: Ht 167.6 cm; Wt 61.4 kg
[2024-11-23 10:43] VITALS: BP 114/58; TEMP 97.6; O2SAT 99
[2024-11-23] MEDS ORDERED: AMOX500C (11:00)
== END 2024-11-23 12:18 | disposition left against medical advice (07) ==
LOC: M ED 10:33
DX: Z53.21 Procedure and treatment not carried out due to patient leaving prior to being seen by health care provider (principal)

== ENCOUNTER → 2024-12-30 | Outpatient (REF) | payer OTHER ==
[~2024-12-30] MED LIST changes: +AMOX500C
[2024-12-30 13:53] LABS: BASO # 0.1 10^3/uL (0.0-0.2); BASO % 0.5 % (0.0-1.0); EOS # 0.1 10^3/uL (0.0-0.5); EOS % 0.9 % (0.0-3.0); HEMATOCRIT 48.6 % (42.0-52.0); HEMOGLOBIN 15.3 g/dl (13.5-17.5); LYMPH # 1.8 10^3/uL (1.5-5.0); LYMPH % 14.1 % (24.0-44.0); MEAN CORPUSCULAR HEMOGLOBIN 28.3 pg (27.0-33.0); MEAN CORPUSCULAR HGB CONC 31.5 g/dl (32.0-36.5); MEAN CORPUSCULAR VOLUME 89.8 fl (80.0-96.0); MONO # 1.1 10^3/uL (0.0-0.8); MONO % 8.5 % (2.0-8.0); NEUTROPHILS # 9.7 10^3/uL (1.5-8.5); NEUTROPHILS % 75.5 % (36.0-66.0); PLATELET COUNT, AUTOMATED 373 10^3/uL (150-450); RED BLOOD COUNT 5.41 10^6/uL (4.30-6.10); WHITE BLOOD COUNT 12.9 10^3/uL (4.0-10.0)
[2024-12-30 14:18] LABS: ALBUMIN 4.3 G/DL (3.2-5.2); ALKALINE PHOSPHATASE 84 U/L (40-129); ALT/SGPT 15 U/L (7.0-40); AST/SGOT 10 U/L (<34); BILIRUBIN,TOTAL 0.4 MG/DL (0.3-1.2); BLOOD UREA NITROGEN 6 MG/DL (9-23); CALCIUM LEVEL 9.7 MG/DL (8.5-10.1); CARBON DIOXIDE LEVEL 30 MMOL/L (20-31); CHLORIDE LEVEL 103 MMOL/L (98-107); CHOLESTEROL LEVEL 131 MG/DL (<200); CHOLESTEROL RISK RATIO 2.79 (<5); CREATININE FOR GFR 0.84 MG/DL (0.70-1.30); GLOMERULAR FILTRATION RATE > 60.0 (>60); GLUCOSE, FASTING 73 MG/DL (60-100); HDL CHOLESTEROL 46.8 MG/DL (>40); LDL CHOLESTEROL 46.8 MG/DL (<100); NON-HDL-C 84.2 MG/DL; POTASSIUM SERUM 4.4 MMOL/L (3.5-5.1); SODIUM LEVEL 137 MMOL/L (136-145); TOTAL PROTEIN 7.2 G/DL (5.7-8.2); TRIGLYCERIDES LEVEL 187 MG/DL (<150)
[2024-12-30 14:20] LABS: THYROID STIMULATING HORMONE 1.458 uIU/ML (0.55-4.78); TOTAL 25(OH) VITAMIN D 31.6 NG/ML (20.0-100.0)
== END ==
LOC: M LAB REF 12:53
PROVIDERS: ATTEND Nurse Practitioner Family
DX: F52.21 Male erectile disorder (principal); Z13.220 Encounter for screening for lipoid disorders; Z13.29 Encounter for screening for other suspected endocrine disorder; E55.9 Vitamin D deficiency, unspecified

== ENCOUNTER → 2025-01-18 | Outpatient (REF) | payer OTHER | LOC: M LAB REF 12:04 | PROVIDERS: ATTEND Nurse Practitioner Family | DX: B34.9 Viral infection, unspecified (principal) ==

== ENCOUNTER 2025-09-06 01:34 | Inpatient (IN) | payer OTHER ==
[~2025-09-06] VITALS: Ht 167.6 cm; Wt 58.7 kg
[~2025-09-06 01:34] MED LIST changes: -DIPH50CA PO; +DIPH50CA31 PO
[2025-09-06] MEDS: diphenhydrAMINE 50 MG/ML VIAL IM ONE (02:48)
[2025-09-06] MEDS: HALOPERIDOL LACTATE 5 MG/ML VIAL IM ONE (02:48)
[2025-09-06 03:04] LABS: ETHYL ALCOHOL (ETHANOL) < 0.003 % (0.000-0.010)
[2025-09-06 03:06] LABS: ALT/SGPT 16 U/L (7.0-40); AST/SGOT 23 U/L (<34); CALCIUM LEVEL 9.6 MG/DL (8.5-10.1); CARBON DIOXIDE LEVEL 27 MMOL/L (20-31); CHLORIDE LEVEL 103 MMOL/L (98-107); CREATININE FOR GFR 0.94 MG/DL (0.70-1.30); GLOMERULAR FILTRATION RATE > 90.0 (>60); POTASSIUM SERUM 3.9 MMOL/L (3.5-5.1); SALICYLATE LEVEL < 3.0 MG/DL (<30); SODIUM LEVEL 138 MMOL/L (136-145)
[2025-09-06 03:13] LABS: PLATELET COUNT, AUTOMATED 339 10^3/uL (150-450)
[2025-09-06] MEDS ORDERED: MED REC CURRENTLY UNOBTAINABLE XX SCH (03:40)
[2025-09-06] MEDS ORDERED: HOME MED LIST COMPLETE! XX SCH (03:45)
[2025-09-06 04:28] LABS: METHADONE URINE NEGATIVE (NEGATIVE)
[2025-09-06 04:29] LABS: AMPHETAMINES LEVEL URINE NEGATIVE (NEGATIVE); BARBITURATES URINE NEGATIVE (NEGATIVE); BENZODIAZEPINES URINE NEGATIVE (NEGATIVE); COCAINE METABOLITE URINE NEGATIVE (NEGATIVE); OPIATES URINE NEGATIVE (NEGATIVE); PHENCYCLIDINE URINE NEGATIVE (NEGATIVE)
[2025-09-06 04:43] LABS: CANNABINOIDS URINE POSITIVE (NEGATIVE)
[2025-09-06] MEDS: OLANZapine ORAL DISINTEGRATING TAB 5MG PO ONE (12:20)
[2025-09-06] MEDS ORDERED: OLANZapine ORAL DISINTEGRATING TAB 5MG PO PRN (14:00)
[2025-09-06 15:46] VITALS: BP 154/83; TEMP 97; O2SAT 100
[2025-09-06] MEDS: ACETAMINOPHEN 325 MG TAB PO PRN (16:37)
[2025-09-06] MEDS: OLANZapine 5 MG TAB PO ONE (20:22)
[2025-09-06] MEDS: IBUPROFEN 400 MG TAB PO PRN (21:17)
[2025-09-07 06:31] VITALS: BP 145/89; TEMP 97.1; O2SAT 98
[2025-09-07] MEDS: RISPERIDONE 1 MG TAB PO SCH (10:26)
[2025-09-07] MEDS: LORazepam 1 MG TAB PO PRN (10:58)
[2025-09-07] MEDS: DIVALPROEX 250 MG *ER* TAB PO SCH (20:18)
[2025-09-07] MEDS: NICOTINE POLACRILEX 2 MG GUM PO PRN (20:27)
[2025-09-08 00:23] VITALS: BP 139/78; TEMP 98.1; O2SAT 98
[2025-09-08] MEDS: MAALOX 30 ML SUSP *UDC PO PRN (01:34)
[2025-09-08 06:32] VITALS: BP 138/83; TEMP 98.1; O2SAT 100
[2025-09-08 15:32] VITALS: BP 115/68; TEMP 97.2; O2SAT 98
[2025-09-09 06:10] VITALS: BP 127/66; TEMP 97; O2SAT 98
[2025-09-09 16:38] VITALS: BP 127/67; TEMP 97.4; O2SAT 99
[2025-09-10 06:54] VITALS: BP 113/57; TEMP 97.6; O2SAT 100
[2025-09-10 14:39] VITALS: BP 122/61; TEMP 97.6; O2SAT 100
[2025-09-10] MEDS: PALIPERIDONE PAL 234MG/1.5ML INJ (FREE PSY INPT ONLY) IM ONE (16:54)
[2025-09-11 06:25] VITALS: BP 117/72; TEMP 97.1; O2SAT 98
[2025-09-11 15:30] VITALS: BP 114/65; TEMP 97.7; O2SAT 99
[2025-09-11] MEDS: traZODone 50 MG TAB PO PRN (20:15)
[2025-09-12 06:37] VITALS: BP 114/67; TEMP 97.4; O2SAT 98
[2025-09-12] MEDS: MOM 30 ML SUSPENSION UDC PO PRN (12:57)
[2025-09-12 15:37] VITALS: BP 121/70; TEMP 97.8; O2SAT 98
[2025-09-12] MEDS: RISPERIDONE 1 MG TAB PO SCH (20:31)
[2025-09-12] MEDS: DIVALPROEX 250 MG *ER* TAB PO SCH (20:31)
[2025-09-13 06:56] VITALS: BP 110/58; TEMP 97.2; O2SAT 99
[2025-09-13 15:30] VITALS: BP 121/64; TEMP 97.7; O2SAT 98
[2025-09-14 06:40] VITALS: BP 130/80; TEMP 97; O2SAT 98
[2025-09-14] MEDS ORDERED: DIVA500T9 PO (08:16)
[2025-09-14] MEDS ORDERED: RISP-105 PO (08:16)
[2025-09-14] MEDS ORDERED: INVE234I IM (08:16)
[2025-09-14] MEDS: PALIPERIDONE PAL 156MG/1ML INJ (FREE PSY INPT ONLY) IM ONE (08:23)
== END 2025-09-14 11:12 | disposition home or self-care (01) | DRG 753 ==
LOC: M ED 01:34 → M ED INP 13:58 → M PSY 15:01
PROVIDERS: ADMIT General Practice; ATTEND General Practice
DX: F31.60 Bipolar disorder, current episode mixed, unspecified (principal); Z91.148 Patient's other noncompliance with medication regimen for other reason; R45.851 Suicidal ideations; F12.20 Cannabis dependence, uncomplicated; F17.200 Nicotine dependence, unspecified, uncomplicated; D72.829 Elevated white blood cell count, unspecified; M25.512 Pain in left shoulder

== ENCOUNTER 2025-10-06 11:45 | Emergency (ER) | payer OTHER ==
[~2025-10-06] VITALS: Ht 167.6 cm; Wt 62.2 kg
[2025-10-06 11:53] VITALS: BP 125/71; TEMP 96.6; O2SAT 98
[2025-10-06] MEDS: MAGNESIUM CITRATE 300 ML BTL PO ONE (12:42)
== END 2025-10-06 12:44 | disposition home or self-care (01) ==
LOC: M ED 12:28
DX: K59.00 Constipation, unspecified (principal); K21.9 Gastro-esophageal reflux disease without esophagitis; F41.9 Anxiety disorder, unspecified; F17.200 Nicotine dependence, unspecified, uncomplicated; Z85.47 Personal history of malignant neoplasm of testis; Z90.79 Acquired absence of other genital organ(s); Z79.899 Other long term (current) drug therapy